=== PATIENT | female | born 1990 | race Caucasian/White ===

== ENCOUNTER 2020-09-18 14:29 | Outpatient (REF) | payer OTHER, SELFPAY | END 2020-09-18 14:30 | disposition home or self-care (01) | LOC: HO.SCI 14:29 | DX: Z13.89 Encounter for screening for other disorder (principal) ==

== ENCOUNTER 2020-10-03 13:48 | Outpatient (REF) | payer OTHER, SELFPAY ==
--- NOTE | ~2020-10-03 | US_ITS ---
EXAMINATION: US OBSTETRICAL CLINICAL INFORMATION: 30-year-old at 19.4 weeks of gestation Suspected anomaly Insufficient care COMPARISON: None in this TECHNIQUE: Real-time transabdominal ultrasound was performed using C1-5 megahertz transducer. FINDINGS: A single, active, fetus is seen in breech presentation. The placenta is anterior without previa, and the amniotic fluid volume is wnl. MEASUREMENTS: 1. Biparietal Diameter: 4.7 cm; 20.1 wks 2. Occipital Frontal Diameter: 6.3 cm 3. Head Circumference: 17.7 cm; 20.2 wks 4. Abdominal Circumference: 15.5 cm; 20.5 wks 5. Femur Length: 3.1 cm; 19.5 wks 6. Humerus Length: 3.1 cm; 20.2 wks 7. Tibia Length: 2.7 cm; 19.6 wks 8. Ulna Length: 2.6 cm; 19.2 wks 9. Lateral ventricle: 0.52 cm 10. Cerebellum: 1.98 cm; 20.2 wks 11. Cisterna Magna: 0.36 cm 12. Nuchal Fold: 3.91 mm 13. Heart Rate: 155 beats per minute Rt ovary: normal Lt ovary: Unable to visualize Cervical length 3.9 cm on T/A. GESTATIONAL AGE: 1. Established GA: 19.4 wks 2. GA from [facility]: 20.2 wks ESTIMATED DATE OF DELIVERY: 1. Established POOJA: 02/23/2021 2. POOJA from [facility]: 721 ANATOMY: The visualized anatomy includes but not limited to: 1. Cranium: Normal 2. Intracranial anatomy: cavum septum pellucidi, lateral ventricles, choroid plexus, cerebellum, posterior fossa, third and fourth ventricles. 3. face: orbits, lip/palate, profile, nasal bone 4. Heart: four-chamber view of the heart, ventricular septum, foramen ovale, pulmonary vein, left and right outflow tracts, three-vessel view, 3 vessel trachea view, aortic and ductal arches, situs.. 5. Diaphragm: Normal 6. Abdominal wall: Normal 7. Cord Insertion: Normal 8. Spine: Cervical, thoracic, lumbar, sacral. 9. Stomach: Normal size and shape 10. Right Kidney: Normal 11. Left Kidney: Normal 12. 3 vessel cord: Normal 13. Upper extremity: Open hands, fifth digit. 14. Lower extremity: Tibia, fibula, bilateral feet. 15. Bladder: Normal 16. Genitalia: Female, patient not aware US/US OB /maternal detail IMPRESSION: 1. Single, living, intrauterine with appropriate biometry. 2. Normal survey DISCUSSION: I reviewed today's ultrasound findings. We discussed the limitations of ultrasound in diagnosing aneuploidy and other congenital abnormalities. I reviewed the differences between screening test and diagnostic test. Amniocentesis was discussed and declined. She was informed that the baseline incidence of congenital abnormalities is approximately 3-5%. Not all these conditions are diagnosable in utero. POOJA of 02/23/2021 is based on earlier ultrasound per patient. However the ultrasound report is not available for my inspection. RECOMMENDATIONS: 1. Follow-up when necessary. Thank you for allowing me to participate in her care. Total time 30 minutes. The time spent was devoted to counseling the patient about the disease and diagnosis, coordinating care including reviewing her records, pertinent lab data and studies, as well as discussing diagnostic evaluation and workup, plan therapeutic interventions and future disposition of care. This includes any additional research needed to obtain further information in formulating the plan of care of this patient. This note was generated with a voice recognition program. Please excuse any errors which may have been overlooked during my review of this note. Sometimes these errors may affect the content or meaning of a given sentence.
== END 2020-10-03 13:49 | disposition home or self-care (01) ==
LOC: HO.US 13:48
PROVIDERS: Visit Provider Obstetrics & Gynecology
DX: Z36.3 Encounter for antenatal screening for malformations (principal)
CPT/HCPCS: 76811

== ENCOUNTER 2023-10-10 15:24 | Outpatient (AMB) | payer OTHER, SELFPAY ==
--- NOTE | 2023-10-10 16:15 | MHC.OFFWIV ---
Intake Vital Signs 10/10/23 16:19 Height 5 ft 5 in Weight 189 lb BMI 31.4 BP 142/86 H Blood Pressure Location Lt brachial Position Sitting Pulse 106 H Pulse Source Pulse Oximeter Pulse Oximetry (%) 99 Oxygen Delivery Method Room Air Intake Visit Reasons: EP Acid Reflux back pain Intake Note: Pt is here today for acid reflux and back pain. Symptoms started 3hrs ago today. Patient Tobacco Use Status: Never used Tobacco Allergies tree nut Allergy (Unknown, Verified 10/10/23 16:19) Hives Do you need a note to return to daycare/school/sports/work: No HPI EP Acid Reflux back pain HPI Details 33-year-old female presents to the office for a sick visit. Patient gives history of GERD which started during the 3rd trimester of her last . She was well controlled on pantoprazole after the of the baby, patient has been having symptoms of GERD despite being on pantoprazole. She gets pain in her middle of the back radiating to the front once or twice a week. Symptoms then last for a day. No nausea or vomiting. Patient has tried Mylanta along with pantoprazole with minimal relief. She continues to nurse her baby. [facility] Social History Patient Tobacco Use Status: Never used Tobacco Physical Exam Vital Signs: Last Vital Signs Pulse 106 H 10/10/23 16:19 BP 142/86 H 10/10/23 16:19 Pulse Ox 99 10/10/23 16:19 Oxygen Delivery Method Room Air 10/10/23 16:19 BMI result Body Mass Index 31.4 Const General: cooperative and healthy appearing Nutritional Appearance: well nourished Orientation/consciousness: patient oriented x3 Limitations: no limitations HEENT Head: Yes normal to inspection Eyes General: appearance normal, both eyes and all related structures Neck Neck: Yes normal visual inspection Chest Chest palpation & inspection: normal palpation of entire chest wall Resp Effort & Inspection: normal respiratory effort Neuro General: patient oriented x3 Assessment & Plan Assessment & Plan (1) GERD (gastroesophageal reflux disease): Code(s): K21.9 - Gastro-esophageal reflux disease without esophagitis Plan: Zantac 150 mg twice a day added to the regimen. Patient was advised to avoid carbonated drinks. Blood work has been ordered. Should symptoms not improve she needs to follow-up with her primary care for a possible GI referral. Orders: Orders Basic Metabolic Panel Today K21.9 - Gastro-esophageal reflux disease without esophagitis Liver Panel Today K21.9 - Gastro-esophageal reflux disease without esophagitis Thyroid Stimulating Hormone Today K21.9 - Gastro-esophageal reflux disease without esophagitis Complete Blood Count no Diff Today K21.9 - Gastro-esophageal reflux disease without esophagitis Coding Level of Care Code Est Pt Level 4 (06656) Diagnoses GERD (gastroesophageal reflux disease) K21.9
[2023-10-10 16:19] VITALS: BP 142/86; PULSE 106; O2SAT 99; BMI 31.4
== END 2023-10-10 16:51 | disposition home or self-care (01) ==
PROVIDERS: PCP Family Medicine; Visit Provider Internal Medicine
DX: K21.9 Gastro-esophageal reflux disease without esophagitis (principal)
CPT/HCPCS: 99214

== ENCOUNTER 2024-12-05 07:54 | Outpatient (AMB) | payer OTHER, SELFPAY ==
--- OUTSIDE RECORDS SUMMARY | 2024-12-05 07:58 | XMS_ITS | Encounter Summary ---
Author Organization [facility] Address [address] [place] [address] Care Team Providers Care Telephone Instrument Supervisor Name Role Phone Cooper Lawler MD Primary Care Provider [phone] Encounter Details Date Type Department Care Team (Late st Contact Info) Description 03/17/2023 Scanned Document [facility] Department Of Dental Professional [place] [address] [place] [id number] Shalom Orlando MD [address] [place] [address] Social History Tobacco Use Types Packs/Day Years Used Date Smoking Tobacco: Never Smokeless Tobacco: Never Alcohol Use Standard Drinks/Week Comments Yes 0 (1 standard drink = 0.6 oz pur e alcohol) Comments Yes Sex and Gender Information Value Date Recorded Sex Assigned at Female 05/09/2023 8:12 AM EDT Legal Sex Female 11:50 AM EDT Gender Identity Female 09/24/2022 3:55 PM EST Sexual Orientation Not on file documented as of this encounter Plan of Treatment Not on file documented as of this encounter Visit Diagnoses Not on filedocumented in this encounter Care Teams Telephone Instrument Supervisor Relationship Specialty Start Date End Date Cooper Lawler MD [address] [facility] [facility] [address] [place], [place] [id number] PCP - General documented as of this encounter
--- OUTSIDE RECORDS SUMMARY | 2024-12-05 07:59 | XMS_ITS | Encounter Summary ---
Author Organization [facility] Address [address] [place] [address] Care Team Providers Care Clinic Administrator Name Role Phone Cooper Lawler MD Primary Care Provider [phone] Encounter Details Date Type Department Care Team (Late st Contact Info) Description 10/14/2023 Scanned Document [facility] [address] [place] [address] Provider, External, [address] [place] [address] Social History Tobacco Use Types Packs/Day Years Used Date Smoking Tobacco: Never Smokeless Tobacco: Never Alcohol Use Standard Drinks/Week Comments Yes 0 (1 standard drink = 0.6 oz pur e alcohol) [facility] Utilities Answer Date Recorded In the past 12 months has e electric, gas, oil, or water company threatened to shut off services in your home? No 09/08/2023 AUDIT-C Answer Date Recorded Q1: How often do you have a drink containing alcohol? Never 09/08/2023 Q2: How many drinks containi ng alcohol do you have on a typical day when you are drinking? Patient does not drink Q3: How often do you have si x or more drinks on one occasion? Never 09/08/2023 Hunger Vital Sign Answer Date Recorded Within the past 12 months, y ou worried that your food would run out before you got the money to buy more. Never true 09/08/19 24 Within the past 12 months, t he food you bought just didn't last and you didn't have money to get more. Never true 09/08/2023 PRAPARE - Transportation Answer Date Re corded In the past 12 months, has l ack of transportation kept you from medical appointments or from getting medications? No 03/2024 In the past 12 months, has l ack of transportation kept you from meetings, work, or from getting things needed for daily living? No 09/08/2023 Housing Stability Vital Sign Answer Darrell e Recorded In the last 12 months, was t here a time when you were not able to pay the mortgage or rent on time? No 09/08/2023 In the last 12 months, how many places have you lived? 0 09/08/2023 In the last 12 months, was t here a time when you did not have a steady place to sleep or slept in a nursing home (including now)? No 09/08/2023 Comments No Sex and Gender Information Value Date Recorded Sex Assigned at Female 05/09/2023 8:12 AM EDT Legal Sex Female 11:50 AM EDT Gender Identity Female 09/24/2022 3:55 PM EST Sexual Orientation Not on file documented as of this encounter Plan of Treatment Not on file documented as of this encounter Visit Diagnoses Not on filedocumented in this encounter Care Teams Clinic Administrator Relationship Specialty Start Date End Date Cooper Lawler MD [address] [facility] [address] [facility] [address] [place] [address] PCP - General documented as of this encounter
--- OUTSIDE RECORDS SUMMARY | 2024-12-05 07:59 | XMS_ITS | Encounter Summary ---
Author Organization [facility] Address [address] [place] [address] Care Team Providers Care Manager Quality Systems Name Role Phone Cooper Lawler MD Primary Care Provider Encounter Details Date Type Department Care Team (Late st Contact Info) Description 02/16/2023 Scanned Document [facility] Department Of [place] [address] [place] [address] Shalom Orlando MD [address] [place] [address] Social History Tobacco Use Types Packs/Day Years [...] on filedocumented in this encounter Care Teams Manager Quality Systems Relationship Specialty Start Date End Date Cooper Lawler MD [address] [facility] [address] [place], [place] [phone] PCP - General documented as of this encounter
--- OUTSIDE RECORDS SUMMARY | 2024-12-05 07:59 | XMS_ITS | Encounter Summary ---
Author Organization [facility] Address [address] [place] [address] Care Team Providers Care Paint Preparer Name Role Phone Cooper Lawler MD Primary Care Provider [phone] Encounter Details Date Type Department Care Team (Late st Contact Info) Description 08/10/2023 Scanned Document [facility] Department Of [place] [address] [place] [phone] Shalom Orlando MD [address] [place] [address] Social History Tobacco Use Types Packs/Day Years [...] on filedocumented in this encounter Care Teams Paint Preparer Relationship Specialty Start Date End Date Cooper Lawler MD [address] [facility] [address] [place], [place] [phone] PCP - General documented as of this encounter
--- OUTSIDE RECORDS SUMMARY | 2024-12-05 07:59 | XMS_ITS | Clinical Summary ---
Author Organization [facility] Address [address] [place] [address] Care Team Providers Care Raveler Name Role Phone Unavailable Primary Care Provider Unavailabl e Allergies Active Allergy Reactions Criticality Noted Date Comments Nuts Anaphylaxis High 02/23/2021 Tree Nuts Anaphylaxis High 02/23/2021 Medications Medication Sig Dispensed Refills Start Date End Date Status Vit-Fe Fumarate-FA ( Plus) 27-1 MG TABS tablet Take 1 tablet by mouth every morning after breakfast. 0 Active HYDROmorphone (DILAUDID) 2 MG tablet Take 1 tablet (2 mg total) by mouth every 6 (six) hours as needed for pain. 12 tablet 0 10/14/2023 Active oxyCODONE (ROXICODONE) 5 MG immediate release tablet Take 1 tablet (5 mg total) by mouth every 6 (six) hours as needed for pain. 15 tablet 0 10/14/2023 Active Active Problems Problem Noted Date Diagnosed Date Choledocholithiasis 10/11/2023 Severe pre-eclampsia, delivered, current hospita lization 02/24/2021 Normal labor 02/23/2021 Elevated blood pressure affe cting in third trimester, antepartum 02/23/2021 Social History Tobacco Use Types Packs/Day Years Used Date Smoking Tobacco: Never Smokeless Tobacco: Never Alcohol Use Standard Drinks/Week Comments Not Currently 0 (1 standard drink = 0.6 oz pur e alcohol) Sex and Gender Information Value Date Recorded Sex Assigned at Female 07/11/2020 1:32 PM EST Gender Identity Not on file Sexual Orientation Not on file Job Start Date Occupation Industry Not on file Not on file Not on file Last Filed Vital Signs Vital Sign Reading Time Taken Comments Blood Pressure 138/83 10/14/2023 3:33 PM EDT Pulse 88 10/14/2023 3:33 PM EDT Temperature 36.7 ??C (98 ??F) 10/14/2023 3:33 PM EDT Respiratory Rate 16 10/14/2023 3:33 PM EDT Oxygen Saturation 99% 10/14/2023 3:33 PM EDT Inhaled Oxygen Concentration - - Weight 88 kg (194 lb 0.1 oz) 10/14/2023 3:33 PM EDT Height 165.1 cm (5' 5 ) 10/14/2023 7:59 AM EDT Body Mass Index 32.28 10/14/2023 7:59 AM EDT Plan of Treatment Health Maintenance Due Date Last Done Comments Hepatitis B Vaccines (1 of 3 - 3-dose series) 1990 Hepatitis C Screening 1990 COVID-19 Vaccine (#1) 1990 Depression Screening 2002 BMI Counseling 2008 Preventative Health Evaluation 2008 Cervical Cancer Screening (P ap Smear) 2011 Influenza Vaccine (#1) 2024 05/10/2023 DTap / Tdap / Td (2 - Td or Tdap) 08/04/2033 024 RSV Adult > 60+ Yrs or Discontinued 3 Pneumococcal Vaccine Aged Out No long er eligible based on patient's age to complete this topic RSV Ped < 20 months Aged Out No longe r eligible based on patient's age to complete this topic Advance Directives For more information, please contact: [phone] Latest Code Status on File Code Status Date Activated Date Inactivated Comments Full Code 10/14/2023 10:23 AM 10/14/2023 3:11 PM This code status was ascertained in the following way: discussion with patient . Code Status History Code Status Date Activated Date Inactivated Comments Full Code 10/11/2023 10:32 AM 10/12/2023 11:14 PM Thi s code status was ascertained in the following way: discussion with patient . Full Code 02/23/2021 5:33 AM 02/26/2021 6:27 PM This code status was ascertained in the following way: discussion with patient .
--- OUTSIDE RECORDS SUMMARY | 2024-12-05 07:59 | XMS_ITS | Clinical Summary ---
Author Organization [facility] Address [address] [place] [address] Care Team Providers Care Open Hearth Furnace Laborer Name Role Phone Unavailable Primary Care Provider Unavailabl e Surgical History Surgery Date Site/Laterality Comments APPENDECTOMY PROCEDURE:APPENDECTOMY KNEE SURGERY PROCEDURE:KNEE SURGERY MANDIBLE SURGERY PROCEDURE:MANDIBLE SURGERY WISDOM TOOTH EXTRACTION PROCEDURE:WISDOM TOOTH EXTRACTION CHOLECYSTECTOMY 10/14/2023 N/A PROCEDURE:CHOLECYSTECTOMY;COMMENT:P rocedure: LAPAROSCOPY CHOLECYSTECTOMY POSSIBLE OPEN; Surgeon: Camila Richey MD; Location: [facility]; Service: General; Laterality: N/A; Social History Tobacco Use Types Packs/Day Years Used Date Smoking Tobacco: Never Smokeless Tobacco: Never Alcohol Use Standard Drinks/Week Comments Not Currently 0 (1 standard drink = 0.6 oz pur e alcohol) Comments Unknown Sex and Gender Information Value Date Recorded Sex Assigned at Not on file Legal Sex Female 11:12 PM EST Gender Identity Not on file Sexual Orientation Not on file Obstetrics History Plan of Treatment Health Maintenance Due Date Last Done Comments DTaP,Tdap,and Td Vaccines (1 - Tdap) 2009 Hepatitis B Vaccines (1 of 3 - 19+ 3-dose series) 2009 Cervical Cancer Screening: Pap Smear 2011 Cholesterol Screening (Lipid Panel) 07/04/2022 Depression Screening 07/04/2022 HIV Screening 07/04/2022 Hepatitis C Screening 07/04/2022 Social Influencers of Health Screening 07/04/2022 COVID-19 Vaccine ( season) 2024 Hypertension/CHF/CAD Annual BMP Blood Test 10/13/2024 10/14/2023, 10/14/2023, 10/12/2023, Additional history exists Influenza Vaccine (Season Ended) 2025 HIB Vaccines Aged Out No longer eligi ble based on patient's age to complete this topic HPV Vaccines Aged Out No longer eligi ble based on patient's age to complete this topic Hepatitis A Vaccines Aged Out No long er eligible based on patient's age to complete this topic IPV Vaccines Aged Out No longer eligi ble based on patient's age to complete this topic MMR Vaccines Aged Out No longer eligi ble based on patient's age to complete this topic Meningococcal ACWY Vaccine Aged Out N o longer eligible based on patient's age to complete this topic Meningococcal B Vaccine Aged Out No l onger eligible based on patient's age to complete this topic Pneumococcal Vaccine: Pediatrics (0 to 5 Years) and At-Risk Patients (6 to 64 Years) Aged Out No longer eligible based on patient's age to complete this topic RSV Immunization Patients Under 20 months Aged Out No longer eligible based on patient's age to complete this topic Varicella Vaccines Aged Out No longer eligible based on patient's age to complete this topic
--- OUTSIDE RECORDS SUMMARY | 2024-12-05 07:59 | XMS_ITS ---
Author Name [facility] Organization Unknown Results Test Name/Text Value Interpretation Date Range Source LIPASE SERPL CCNC 52U/L Normal [id number] 11 - 82 [facility] ALP SERPL-CCNC 220U/L Above high normal [id number] 34 - 104 [facility] ALT SERPL CCNC 460U/L Above high normal [id number] 7 - 52 [facility] AST SERPL CCNC 432U/L Above high normal [id number] 5 - 40 [facility] LDH SERPL L TO P CCNC 426U/L Above high normal [id number] 125 - 220 [facility] HCG PREG SERPL QL NEGATIVE Normal [id number] [facility] NEUTROPHIL[facility] NFR BLD AUTO 85.8% Above high normal [id number] 44 - 74 [facility] MONOCYTES NFR BLD AUTO 2.5% Normal [id number] 2 - 12 [facility] BASOPHILS NFR BLD AUTO 0.1% Normal [id number] 0 - 2 [facility] EOSINOPHIL NFR BLD AUTO 0% Normal [id number] 0 - 6 [facility] NUCLEATED RBC 0% Normal [id number] 0 - 1 [facility] LYMPHOCYTES NFR BLD AUTO 11.2% Below low normal [id number] 20 - 48 [facility] NEUTROPHILS NO. BLD AUTO 7.8K/uL Normal [id number] 1.8 - 7.8 [facility] LYMPHOCYTES NO. BLD AUTO 1K/uL Normal [id number] 1 - 3.2 [facility] IMMATURE GRANULOCYTE, PERCENT 0.4% Normal [id number] 0 - 1 [facility] BASOPHILS IN BLOOD BY AUTOMATED COUNT 0K/uL Normal [id number] 0 - 0.2 [facility] IMMATURE GRANULOCYTE, ABSOLUTE 0.04k/uL Normal [id number] - 0.1 [facility] MONOCYTES NO. BLD AUTO 0.2K/uL Normal [id number] 0 - 0.8 [facility] EOSINOPHIL NO. BLD AUTO 0K/uL Normal [id number] 0 - 0.5 [facility] MCV RBC AUTO 72.4fL Below low normal [id number] 78 - 10 0 [facility] PMV BLD AUTO 10.4fL Normal [id number] 7.4 - 11.4 [facility] RDW RBC AUTO RTO 22.5% Above high normal [id number] 12 .1 - 16.2 [facility] PLATELET NO. BLD AUTO 261K/uL Normal [id number] 150 - 450 [facility] MCH RBC QN AUTO 23.4pg Below low normal [id number] 25 - 33 [facility] HGB BLD MCNC 12.9g/dL Normal [id number] 12.5 - 16 [facility] MCHC RBC AUTO MCNC 32.3g/dL Normal [id number] 32 - 36 [facility] HCT VFR BLD AUTO 39.9% Normal [id number] 37 - 47 [facility] WBC NO. BLD AUTO 9.1K/uL Normal [id number] 4 - 10.5 [facility] RBC NO. BLD AUTO 5.51M/uL Above high normal [id number] 4. 2 - 5.4 [facility] ANION GAP SERPL SCNC 13mmol/L Normal [id number] 5 - 14 [facility] POTASSIUM SERPL SCNC 3.6mmol/L Normal [id number] 3.5 - 5.1 [facility] BUN SERPL MCNC 10mg/dL Normal [id number] 7 - 17 [facility] HCO3 SER SCNC 20mmol/L Below low normal [id number] 24 - 3 2 [facility] Glomerular filtration rate/1.73 sq M. predicted 100 Normal [id number] 60 - [facility] CREAT SERPL MCNC 0.8mg/dL Normal [id number] 0.5 - 1 [facility] CHLORIDE SERPL SCNC 105mmol/L Normal [id number] 98 - 10 7 [facility] CALCIUM SERPL MCNC 9.6mg/dL Normal [id number] 8.4 - 10 .2 [facility] GLUCOSE SERPL MCNC 139mg/dL Normal [id number] 70 - 199 [facility] SODIUM SERPL SCNC 137mmol/L Normal [id number] 135 - 145 [facility] AMYLASE SERPL CCNC 43U/L Normal [id number] 29 - 103 [facility] BILIRUB DIRECT SERPL MCNC 0.9mg/dL Above high normal [id number] 0 - 0.2 [facility] BILIRUB SERPL MCNC 1.6mg/dL Above high normal [id number] 0.3 - 1 [facility] HCT VFR BLD AUTO 36.8% Below low normal [id number] 37 - 47 [facility] HGB BLD MCNC 11.9g/dL Below low normal [id number] 12.5 - 16 [facility] BUN SERPL MCNC 12mg/dL Normal [id number] 7 - 17 [facility] POTASSIUM SERPL SCNC 3.5mmol/L Normal [id number] 3.5 - 5.1 [facility] Glomerular filtration rate/1.73 sq M. predicted 100 Normal [id number] 60 - [facility] HCO3 SER SCNC 23mmol/L Below low normal [id number] 24 - 3 2 [facility] CHLORIDE SERPL SCNC 108mmol/L Above high normal [id number] 98 - 107 [facility] SODIUM SERPL SCNC 139mmol/L Normal [id number] 135 - 145 [facility] GLUCOSE SERPL MCNC 79mg/dL Normal [id number] 70 - 199 [facility] CREAT SERPL MCNC 0.8mg/dL Normal [id number] 0.5 - 1 [facility] CALCIUM SERPL MCNC 9mg/dL Normal [id number] 8.4 - 10 .2 [facility] ANION GAP SERPL SCNC 8mmol/L Normal [id number] 5 - 14 [facility] ALBUMIN SERPL BCG MCNC 4g/dL Normal [id number] 3.5 - 5 [facility] AST SERPL CCNC 134U/L Above high normal [id number] 5 - 40 [facility] ALP SERPL-CCNC 177U/L Above high normal [id number] 34 - 104 [facility] ALBUMIN/GLOB SERPL MRTO 1.8 Normal [id number] [facility] BILIRUB SERPL MCNC 0.8mg/dL Normal [id number] 0.3 - 1 [facility] BILIRUB DIRECT SERPL MCNC 0.2mg/dL Normal [id number] 0 - 0.2 [facility] ALT SERPL CCNC 257U/L Above high normal [id number] 7 - 52 [facility] PROT SERPL MCNC 6.2g/dL Below low normal [id number] 6.4 - 8.5 [facility] ALT SERPL CCNC 286U/L Above high normal [id number] 7 - 52 [facility] PROT SERPL MCNC 6.9g/dL Normal [id number] 6.4 - 8.5 [facility] BILIRUB SERPL MCNC 0.9mg/dL Normal [id number] 0.3 - 1 [facility] ALBUMIN SERPL BCG MCNC 4.4g/dL Normal [id number] 3.5 - 5 [facility] ALP SERPL-CCNC 190U/L Above high normal [id number] 34 - 104 [facility] AST SERPL CCNC 162U/L Above high normal [id number] 5 - 40 [facility] ALBUMIN/GLOB SERPL MRTO 1.8 Normal [id number] [facility] BILIRUB DIRECT SERPL MCNC 0.3mg/dL Above high normal [id number] 0 - 0.2 [facility] URATE SERPL MCNC 6.4mg/dL Normal [id number] 2.5 - 7 [facility] MAGNESIUM SERPL MCNC 1.8mg/dL Normal [id number] 1.7 - 2.8 [facility] ANION GAP SERPL SCNC 13mmol/L Normal [id number] 5 - 14 [facility] CHLORIDE SERPL SCNC 104mmol/L Normal [id number] 98 - 10 7 [facility] CALCIUM SERPL MCNC 9.6mg/dL Normal [id number] 8.4 - 10 .2 [facility] GLUCOSE SERPL MCNC 113mg/dL Normal [id number] 70 - 199 [facility] BUN SERPL MCNC 12mg/dL Normal [id number] 7 - 17 [facility] Glomerular filtration rate/1.73 sq M. predicted 117 Normal [id number] 60 - [facility] CREAT SERPL MCNC 0.7mg/dL Normal [id number] 0.5 - 1 [facility] SODIUM SERPL SCNC 136mmol/L Normal [id number] 135 - 145 [facility] POTASSIUM SERPL SCNC 3.7mmol/L Normal [id number] 3.5 - 5.1 [facility] HCO3 SER SCNC 19mmol/L Below low normal [id number] 24 - 3 2 [facility] BILIRUB DIRECT SERPL MCNC 1.1mg/dL Above high normal [id number] 0 - 0.2 [facility] BILIRUB SERPL MCNC 2.1mg/dL Above high normal [id number] 0.3 - 1 [facility] LIPASE SERPL CCNC 54U/L Normal [id number] 11 - 82 [facility] AMYLASE SERPL CCNC 39U/L Normal [id number] 29 - 103 [facility] AST SERPL CCNC 226U/L Above high normal [id number] 5 - 40 [facility] ALT SERPL CCNC 265U/L Above high normal [id number] 7 - 52 [facility] LDH SERPL L TO P CCNC 306U/L Above high normal [id number] 125 - 220 [facility] ALP SERPL-CCNC 209U/L Above high normal [id number] 34 - 104 [facility] MCV RBC AUTO 72.9fL Below low normal [id number] 78 - 10 0 [facility] IMMATURE GRANULOCYTE, ABSOLUTE 0.03k/uL Normal [id number] - 0.1 [facility] PLATELET NO. BLD AUTO 247K/uL Normal [id number] 150 - 450 [facility] MONOCYTES NO. BLD AUTO 0.3K/uL Normal [id number] 0 - 0.8 [facility] LYMPHOCYTES NFR BLD AUTO 14.7% Below low normal [id number] 20 - 48 [facility] PMV BLD AUTO 10.5fL Normal [id number] 7.4 - 11.4 [facility] MCHC RBC AUTO MCNC 31.2g/dL Below low normal [id number] 3 2 - 36 [facility] RBC NO. BLD AUTO 5.46M/uL Above high normal [id number] 4. 2 - 5.4 [facility] RDW RBC AUTO RTO 21.8% Above high normal [id number] 12 .1 - 16.2 [facility] MCH RBC QN AUTO 22.7pg Below low normal [id number] 25 - 33 [facility] WBC NO. BLD AUTO 7.5K/uL Normal [id number] 4 - 10.5 [facility] HCT VFR BLD AUTO 39.8% Normal [id number] 37 - 47 [facility] IMMATURE GRANULOCYTE, PERCENT 0.4% Normal [id number] 0 - 1 [facility] HGB BLD MCNC 12.4g/dL Below low normal [id number] 12.5 - 16 [facility] EOSINOPHIL NO. BLD AUTO 0K/uL Normal [id number] 0 - 0.5 [facility] NEUTROPHILS NFR BLD AUTO 79.5% Above high normal [id number] 44 - 74 [facility] MONOCYTES NFR BLD AUTO 4.5% Normal [id number] 2 - 12 [facility] NEUTROPHILS NO. BLD AUTO 6K/uL Normal [id number] 1.8 - 7.8 [facility] NUCLEATED RBC 0% Normal [id number] 0 - 1 [facility] BASOPHILS IN BLOOD BY AUTOMATED COUNT 0K/uL Normal [id number] 0 - 0.2 [facility] LYMPHOCYTES NO. BLD AUTO 1.1K/uL Normal [id number] 1 - 3.2 [facility] BASOPHILS NFR BLD AUTO 0.4% Normal [id number] 0 - 2 [facility] EOSINOPHIL NFR BLD AUTO 0.5% Normal [id number] 0 - 6 [facility] HCG PREG UR QL NEGATIVE Normal [id number] - [facility] Sp Gr Ur Strip.auto 1.015 Normal [id number] 1.005 - 1.03 [facility] Glucose Ur Ql Strip.auto NEGATIVE Normal [id number] - [facility] Ketones Ur Ql Strip.auto >80 Abnormal [id number] - [facility] Hgb Ur Ql Strip.auto NEGATIVE Normal [id number] - [facility] Nitrite Ur Ql Strip.auto NEGATIVE Normal [id number] - [facility] Prot Ur Ql Strip.auto TRACE Abnormal [id number] - [facility] Clarity Ur Refract.auto CLEAR Normal [id number] [facility] Leukocyte esterase Ur Ql Strip.auto NEGATIVE Normal [id number] - [facility] pH Ur Strip.auto 7 Normal [id number] 4.5 - 8 [facility] SPECIMEN SOURCE XXX URINE CLEAN CATCH Normal [id number] [facility] History of Medication Use Medication Directions Dispensed Refills Start Date End Date Stat morphine sulfate injection 4 mg 4 mg, Intravenous, Once, On Tue10/14/23 at 1600, For 1 dose 10/14/2023 10/14/2023 completed fentaNYL (SUBLIMAZE) injection 50 mcg 50 mcg, Intravenous, Every 5 min PRN, moderate pain (4-6), Starting on Tue10/14/23 at 1041, For 4 doses, PACU/Phase 1Not to exceed a total of 200 mcg 10/14/2023 active lactated ringers infusion 100 mL/hr, Intravenous, Continuous, Starting on Yamel 10/13/23 at 0015 10/12/2023 10/12/2023 active cefTRIAXone (ROCEPHIN) injection 1,000 mg 1,000 mg, Intravenous, Once, On Tue10/11/23 at 0300, For 1 doseIf ordered IV then reconstitute with 10 mL sterile water or normal saline and administer IV push over 3 to 5 minutes. 10/11/2023 10/11/2023 completed lactated ringers infusion 125 mL/hr, Intravenous, Continuous, Starting on Tue10/11/23 at 1215 10/11/2023 10/11/2023 aborted magnesium sulfate 2 g/50ml IVPB Premix 2 g, Intravenous, at 50 mL/hr, Once, On Tue10/11/23 at 0015, For 1 dose 10/11/2023 10/11/2023 completed PANTOprazole (PROTONIX) 40 MG EC tablet Take 1 tablet (40 mg total) by mouth every morning before breakfast. 07/20/2023 active vitamin with iron and folic acid ( PLUS) 27-1 MG Tab Take 1 tablet by mouth. active Problems Problem Status Onset Date Problem Type Date of Resolution Source Normal spontaneous vaginal delivery active 2023-09-10 [facility] care and examination active EncounterDiagnosisAct [facility] Post-term , 40-42 weeks of gestation active 2023-09-[address] Decreased movement active 2023-08-23 ProblemAct [facility] Severe pre-eclampsia, delivered, current hospitalization active 2021-02-24 ProblemAct [facility] Elevated blood pressure affecting in third trimester, antepartum active 2021-02-23 ProblemAct [facility] Normal labor active 2021-02-23 ProblemAct [facility] Post-operative pain active EncounterDiagnosisAc t [facility] Hyperbilirubinemia active EncounterDiagnosisAct [facility] Elevated liver enzymes active EncounterDiagnosi sAct [facility] Choledocholithiasis active 2023-10-11 ProblemAct [facility] Immunizations Vaccine Date Source Lot Number Status Tdap 08/04/2023 [facility] [id number] completed RSV, Bivalent, Protein Subun it RSFpreF (ABRYSVO), Diluent Reconstituted, 0.5 mL PF 07/12/2023 [facility] [id number] completed Influenza, Quadrivalent (FLU ARIX, AFLURIA, FLULAVAL, FLUZONE) Preservative Free IM 05/10/2023 [id number] completed Encounters Encounter Type Encounter Reason Primary Diagnosis Location Date Amb[facility] [place] 11/03/2023 Emergency Other acute postprocedural pain Other acute postprocedural pain [facility] 10/14/2023 Ambulatory Calculus of bile oni t without cholangitis or cholecystitis without obstruction Calculus of bile duct without cholangitis or cholecystitis without obstruction [facility] 10/14/2023 Inpatient Acute cholecystitis Acute cholecystitis [facility] 10/10/2023 Inpatient Encounter for full-term uncomplicated delivery Encounter for full-term uncomplicated delivery [facility] 09/08/2023 Ambulatory Encounter for supervision of normal , unspecified, third trimester Encounter for supervision of normal , unspecified, third trimester [facility] 08/30/2023 Ambulatory Encounter for supervision of normal , unspecified, third trimester Encounter for supervision of normal , unspecified, third trimester [facility] 08/26/2023 Ambulatory Decreased movements, unspecified trimester, not applicable or unspecified Decreased movements, unspecified trimester, not applicable or unspecified [facility] 08/23/2023 Ambulatory Encounter for supervision of normal , unspecified, third trimester Encounter for supervision of normal , unspecified, third trimester [facility] 08/23/2023 Ambulatory Encounter for supervision of normal , unspecified, third trimester Encounter for supervision of normal , unspecified, third trimester [facility] 08/18/2023 Ambulatory Encounter for supervision of normal , unspecified, third trimester Encounter for supervision of normal , unspecified, third trimester [facility] 08/11/2023 Ambulatory Encounter for supervision of normal , unspecified, third trimester Encounter for supervision of normal , unspecified, third trimester [facility] 08/04/2023 Ambulatory Encounter for supervision of normal , unspecified, third trimester Encounter for supervision of normal , unspecified, third trimester [facility] 07/26/2023 Ambulatory Maternal care for excessive growth, third trimester, not applicable or unspecified Maternal care for excessive growth, third trimester, not applicable or unspecified [facility] 07/19/2023 Ambulatory Encounter for immunization Encounter for immunization [facility] 07/12/2023 Ambulatory Encounter for supervision of normal , unspecified, third trimester Encounter for supervision of normal , unspecified, third trimester [facility] 06/28/2023 Ambulatory Encounter for supervision of normal , unspecified, second trimester Encounter for supervision of normal , unspecified, second trimester [facility] 06/07/2023 Ambulatory Encounter for immunization Encounter for immunization [facility] 05/10/2023 Ambulatory Encounter for supervision of other normal , second trimester Encounter for supervision of other normal , second trimester [facility] 04/12/2023 Ambulatory Encounter for supervision of other normal , second trimester Encounter for supervision of other normal , second trimester [facility] 03/15/2023 Ambulatory Encounter for screening for nuchal translucency [facility] 02/18/2023 Ambulatory Encounter for supervision of other normal , first trimester [facility] 02/15/2023 Ambulatory Encounter for supervision of normal , unspecified, first trimester [facility] 01/18/2023 Ambulatory Encounter for gynecological examination (general) (routine) without abnormal findings [facility] 10/22/2022 Care Team Organization Name Specialty Phone Email Start Date End [facility] 2023 [facility] 10/11/2023 [facility] 02/18/2023 [facility] 10/22/2022 10/17/2024 [facility] 10/22/2022 10/22/2022
--- NOTE | 2024-12-05 08:00 | MHC.PC.OV ---
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 Intake Note: New patient to establish care Electroneurodiagnostic Technologist Required: No Allergies tree nut Allergy (Unknown, Verified 12/05/24 08:24) Hives Medication List - Last Reconciled 12/05/24 by ALCIRA Cuellar- epinephrine 0.3 mg IM Q10M PRN Tobacco use date assessed: 12/05/24 Dental Screening Dental Screen Date: 12/05/24 Did you have a dental visit in the last 12 months?: No Did you have a dental problem in the last 6 months where you did not have access to dental care?: No Was dental information given to patient?: Patient has dentist HPI HPI Comments History of Present Illness Details 34 y/o female with hx of pancreatitis, obesity s/p lap rupinder w/complication 09/2023 Dr Jernigan[facility] Social: 2 children aged 3 and 1, , 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 - A cholecystectomy was performed following a diagnosis of severe gallstones post-childbirth. The procedure led to complications including bile duct injury, pancreatitis & liver stenting - Diarrhea symptoms intensified in recent weeks and are not linked with bloody stools or significant discernible weight changes. - Has upper gastrointestinal symptoms triggered by certain foods, with symptoms like heartburn, but distinct back pain, intermittent, between shoulder blades, experienced not characterized as reflux. Has no abd pain. Normal urination - No family history of gastrointestinal diseases, and reports negative past testing for celiac disease. - Additional expressed concerns include anxiety triggered by health issues. Was in counseling and on meds previously. Wants counseling - Fungal left great toe nail after pedicure, home treatments w/o great effect. BMI > 32, wants to seek nutrition Elevated heart rate, reports baseline. Apple watch reviewed. 40-182, resting 65-85 bpm. Has never had cardiac work up. + hypersomnolence. has never had sleep study. Physical Exam General: Well developed, well nourished, in no acute distress. Appears stated age. Head: Normocephalic, atraumatic. Eyes: Pupils are equal, round and reactive to light and accommodation. Conjunctivae are clear. Scleras nonicteric Lungs: Clear to auscultation bilaterally, dim throughout Heart: Regular rhythm, + tachycardia No murmurs, click, rubs or gallops are noted. Abdomen: Bowel sounds present in all quadrants. The abdomen is soft, nontender, with no masses or organomegaly noted. No hernias are noted. . Pulses: Peripheral pulses are equal and palpable bilaterally. Extremities: No clubbing, cyanosis nor edema is noted. Toenail fungus noted on the left big toe. Psych: Mood and affect appropriate. Discussion Notes During the consultation, I discussed with the patient the need for further evaluation of her gastrointestinal symptoms post-cholecystectomy. I explained the possible link between post-cholecystectomy diarrhea and bile acid malabsorption, recommending a gastroenterology referral for comprehensive management. I also discussed dietary adjustments and the use of possible binding agents to manage diarrhea. Given the elevated heart rate, a sleep study was advised to assess potential sleep apnea contributing to this finding. For anxiety concerns, I discussed a consultation for cognitive behavioral therapy and further exploration of medication options if needed. Consent for ordering a podiatry consultation for onychomycosis was also discussed with recommendations for self-care measures until evaluated. Orders for labs to check liver function, pancreatic enzymes, and thyroid function were explained, and instructions on stool sample collection were given. The importance of following up on referrals and appointments, acknowledging potential delayed scheduling, was emphasized, as well as the use of our patient portal for accessing lab results and continued communication regarding care. Assessment and Plan 1. 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 Referral to gastroenterology for further evaluation was initiated. 2. Gastroesophageal Reflux Like sx GERD symptoms and dietary triggers were discussed. I recommended monitoring intake that provokes symptoms and advised follow-up with gastroenterology to ascertain further management needs. 3. Anxiety I proposed psychotherapy involvement and referred the patient to our community navigation team for access to mental health services, addressing anxiety possibly exacerbated by recent health challenges. Advice was given on considering medication if required, and including her spouse in therapy sessions was explored. 4. Onychomycosis I recommended continued use of topical antifungal treatments and home remedies, emphasizing exposure to air as part of the management. Referral to podiatry was arranged, with care to avoid systemic treatments impacting liver function. 5. Elevated Pulse Given the identified elevated heart rate, a sleep study referral was recommended to evaluate for possible sleep apnea, acknowledging the potential link between the two conditions. Patient Instructions - Follow up with [facility] for your gastrointestinal concerns as scheduled, considering the potential delay in scheduling. - Continue dietary adjustments to manage symptoms; stay hydrated and note any food triggers. - Use topical antifungal treatment as directed and expose the affected toe to air as much as possible. - Implement stress-reduction strategies to address anxiety and consider engagement with mental health services when contacted. - Schedule the sleep study as instructed once contacted by respiratory therapy. - Utilize the patient portal for accessing lab results and ongoing communication with our office. - RTO in 6-8 weeks to f/u on referrals, sleep study and labs, sooner PRN Consent Patient was informed and verbally consented to the use of an ambient scribe for clinic note documentation during this visit. Total time spent caring for the patient today was 50 minutes. This includes time spent before the visit reviewing the chart, time spent during the visit, and time spent after the visit on documentation, reviewing laboratory results, diagnostic imaging, medications, performing a medically necessary evaluation, counseling on diagnoses, care coordination, ordering appropriate tests, ordering appropriate medications, review of tests performed by other providers, reporting test results with the patient, communication with other healthcare providers. [facility] Medical History (Updated 12/05/24 @ 09:08 by Elizabeth Kumar, [facility]) Anxiety GERD (gastroesophageal reflux disease) Surgical History (Updated 12/05/24 @ 08:11 by Candy Ko MA) H/O wisdom tooth extraction Hx of appendectomy Hx of cholecystectomy Family History (Updated 12/05/24 @ 08:14 by Candy Ko MA) Mother HTN (hypertension) High cholesterol Thyroid disorder Paternal Grandmother HTN (hypertension) Father Diabetes Maternal Grandfather Brain cancer Paternal Grandfather Lung cancer Social History (Updated 12/05/24 @ 08:09 by Candy Ko MA) Household Members: Spouse and Children Housing: House Are you a primary hearing care practitioner to a significant other at home: Yes Do you presently have visiting nurse or other home services: No Alcohol intake: current Alcohol intake frequency: a few times a month Patient Tobacco Use Status: Never used Tobacco e-Cigarette/Vaping Use: Never Used Second Hand Smoke Exposure: No service: No Current occupational status: employed 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 1. Little interest or pleasure in doing things: not at all 2. Feeling down, depressed, or hopeless: not at all 3. Trouble falling or staying asleep, or sleeping too much: not at all 4. Feeling tired or having little energy: several days 5. Poor appetite or overeating: not at all 6. Feeling bad about yourself - or that you are a failure or have let yourself or your family down: not at all 7. Trouble concentrating on things, such as reading the newspaper or watching television: not at all 8. Moving or speaking so slowly that other people could have noticed. Or the opposite - being so fidgety or restless that you have been moving around a lot more than usual: not at all 9. Thoughts that you would be better off or of hurting yourself in some way: not at all Total score: 1 Depression Screening Interpretation: Negative Depression Screening Done: Yes 79965 - PHQ-9 Billing: Yes Source: Developed by Drs. Jose Tavarez, Nickie Joseph, Quincy Ro and colleagues, with an educational nelsy from [employer]. Thrive Questionnaire Date Thrive assessed: 12/05/24 I am a: Patient What is your living situation today?: I have a steady place to live Within the past 12 months, did the food you bought not last and you didn't have the money to get more?: Never true Within the past 12 months, did you worry whether your food would run out before you got money to buy more?: Never true Do you have trouble paying for medicines?: No Do you have trouble getting transportation to medical appointments?: No Do you have trouble paying your heating and electricity bill?: No Do you have trouble taking care of your child, family member or friend?: No Do you have trouble with day-to-day activities such as bathing, preparing meals, shopping, managing finances, etc.?: No Are you currently unemployed and looking for a job?: No Are you interested in more education?: No Please select the resources that you would like help with: None Currently or been in a relationship where the following occur: No concerns reported THRIVE Score: 0 AUDIT C Alcohol Use Questionnaire (AUDIT-C) 1. How often do you have a drink containing alcohol?: Monthly or less 2. How many drinks containing alcohol do you have on a typical day when you are drinking?: 1 or 2 3. How often do you have six or more drinks on one occasion?: Never Total Score: 1 Score Reviewed/Action Taken: Yes BLANCA-7 AMB Questionnaire BLANCA-7 Date BLANCA - 7 assessed: 12/05/24 Feeling nervous, anxious, or on edge: 1 = Several days Not being able to stop or control worryin = Several days Worrying too much about different things: 1 = Several days Trouble relaxin = Not at all Being so restless that it is hard to sit still: 0 = Not at all Becoming easily annoyed or irritable: 1 = Several days Feeling afraid as if something awful might happen: 1 = Several days Total BLANCA-7 score (0-4 normal; 5-9 mild; 10-14 moderate; 15-21 severe): 5 Source: Developed by Drs. Jose Tavarez, Nickie Joseph, Quincy Ro and colleagues, with an educational nelsy from [employer]. BLANCA-7 Assessment Billing BLANCA-7 Assessment Tool: BLANCA-7 Assessment 94201 Physical exam (Primary Care) Vital Signs: Last Vital Signs Temp 97.5 F 12/05/24 08:06 Pulse 100 12/05/24 08:06 Resp 14 12/05/24 08:06 BP 136/74 12/05/24 08:06 Pulse Ox 100 12/05/24 08:06 Oxygen Delivery Method Room Air 12/05/24 08:06 BMI result Body Mass Index 32.2 BMI Assessment/Plan discussion: High BMI High, discussed plan: lifestyle Tobacco/Smoking Status: Tobacco use Status Tobacco use date assessed 12/05/24 12/05/24 08:14 Patient Tobacco Use Status Never used Tobacco 12/05/24 08:14 e-Cigarette/Vaping Use Never Used 12/05/24 08:14 PHQ-9: PHQ-9 Score PHQ-9: Total score 1 12/05/24 08:14 Depression Screening Interpretation: Negative Thrive Assessment: Date of Thrive Assessment Date Thrive assessed 12/05/24 12/05/24 08:14 Currently or been in a relationship where the following occur: No concerns reported Coding Level of Care Code New Pt Level 4 (21487) Complex EM visit Add On G2211 Diagnoses Encounter to establish care Z76.89 Diarrhea, unspecified type R19.7 Diarrhea type: unspecified type Gastroesophageal reflux disease without esophagitis K21.9 Esophagitis presence: without esophagitis Obesity (BMI 30-39.9) E66.9 BLANCA (generalized anxiety disorder) F41.1 Onychomycosis of left great toe B35.1 Hypersomnia G47.10 Tachycardia R00.0 Additional Codes BLANCA-7 Assessment Billing - BLANCA-7 Assessment Tool: BLANCA-7 Assessment 86418 ([id number]) PHQ-9 - 52523 - PHQ-9 Billing: Yes ([id number]) Assessment & Plan Assessment & Plan (1) Encounter to establish care: Code(s): Z76.89 - Persons encountering health services in other specified circumstances Category: Medical (2) Diarrhea: Code(s): R19.7 - Diarrhea, unspecified Category: Medical Qualifiers: Diarrhea type: unspecified type Qualified Code(s): R19.7 - Diarrhea, unspecified (3) GERD (gastroesophageal reflux disease): Code(s): K21.9 - Gastro-esophageal reflux disease without esophagitis Category: Medical Qualifiers: Esophagitis presence: without esophagitis Qualified Code(s): K21.9 - Gastro-esophageal reflux disease without esophagitis (4) Obesity (BMI 30-39.9): Code(s): E66.9 - Obesity, unspecified Category: Medical (5) BLANCA (generalized anxiety disorder): Code(s): F41.1 - Generalized anxiety disorder Category: Medical (6) Onychomycosis of left great toe: Code(s): B35.1 - Tinea unguium Category: Medical (7) Hypersomnia: Code(s): G47.10 - Hypersomnia, unspecified Category: Medical (8) Tachycardia: Code(s): R00.0 - Tachycardia, unspecified Category: Medical Plan . Orders: Orders Complete Blood Count no Diff Today K21.9 - Gastro-esophageal reflux disease without esophagitis, R19.7 - Diarrhea, unspecified Lipid Panel Today K21.9 - Gastro-esophageal reflux disease without esophagitis, R19.7 - Diarrhea, unspecified Microalbumin, Random (w Creat) Today K21.9 - Gastro-esophageal reflux disease without esophagitis, R19.7 - Diarrhea, unspecified TSH reflex Free T4 Today K21.9 - Gastro-esophageal reflux disease without esophagitis, R19.7 - Diarrhea, unspecified Vitamin B12 and Folate Today K21.9 - Gastro-esophageal reflux disease without esophagitis, R19.7 - Diarrhea, unspecified Vitamin D 25-OH Total Today K21.9 - Gastro-esophageal reflux disease without esophagitis, R19.7 - Diarrhea, unspecified Amylase Today K21.9 - Gastro-esophageal reflux disease without esophagitis, R19.7 - Diarrhea, unspecified Lipase Today K21.9 - Gastro-esophageal reflux disease without esophagitis, R19.7 - Diarrhea, unspecified H pylori Ag Stool Today K21.9 - Gastro-esophageal reflux disease without esophagitis, R19.7 - Diarrhea, unspecified Comprehensive Met. Panel Today K21.9 - Gastro-esophageal reflux disease without esophagitis, R19.7 - Diarrhea, unspecified Ferritin Today K21.9 - Gastro-esophageal reflux disease without esophagitis, R19.7 - Diarrhea, unspecified Hemoglobin A1c Today K21.9 - Gastro-esophageal reflux disease without esophagitis, R19.7 - Diarrhea, unspecified RT home sleep study Today G47.10 - Hypersomnia, unspecified, R06.83 - Snoring Referrals Nutrition/Dietitian Referral E66.9 - Obesity, unspecified Gastroenterology Referral K21.9 - Gastro-esophageal reflux disease without esophagitis, R19.7 - Diarrhea, unspecified Nurse Navigator Referral F41.1 - Generalized anxiety disorder Podiatry Referral B35.1 - Tinea unguium Patient Instructions: Walk-In Care (Urgent Care): We Make it Easy Walk-in for urgent medical issues such as: ? Seasonal Allergies ? Insect Bites ? Cough ? Diarrhea ? Acute Asthma Attacks ? Back, Knee or Joint Pain ? Ear Infection ? Fever without a Rash ? Headaches ? Nausea ? Parchment Eye, Rash or Skin Irritation ? Sore Throat ? Sports Physicals ? Vomiting Most insurances are accepted. Patients do not need to be part of the [facility] to seek care at the walk-in clinic. Locations [address] [facility], [place] [address] ? [phone] [facility] in [place] provides services to ages 18 and over. Open Tuesday-Tuesday: 8 a.m. to 5 p.m. and Tuesday: 9 a.m. to 3 p.m.* *Hours may vary due to staffing availability. To confirm Walk-In Care hours in [place], please call [phone]. [address] [place] [address] ? [phone] [facility] in [place] provides services to ages 12 and over. Open Tuesday-Tuesday: 8 a.m. to 5 p.m. Hours may vary due to staffing availability. To confirm Walk-In Care hours in [place], please call [phone]. LABORATORY SERVICES: [facility] Lab ? Primary Location [address] [place] [address] Tuesday through Tuesday 6:00 AM ? 5:00 PM Tuesday 7:00 AM ? 11:00 AM* [phone] The [facility] Lab is centrally located near the front entrance of the [facility] for easy outpatient access. Convenient parking is provided for outpatients. *Hours may vary due to staffing availability. To confirm Laboratory hours for any location, please call [phone]. Offsite Location For your convenience, we offer offsite laboratory draw stations at the following locations: [address] [place] [address] ? [address], [address] Tuesday through Tuesday 7:30 AM ? 1:00 PM* [phone] *Hours may vary due to staffing availability. To confirm Laboratory hours for any location, please call [phone]. [place] ? [address] Tuesday through Tuesday 6:00 AM ? 3:30 PM* Tuesday 6:30 AM ? 3 PM* [phone] *Hours may vary due to staffing availability. To confirm Laboratory hours for any location, please call [phone]. [address] [facility] Tuesday through Tuesday 7:30 AM ? 4:00 PM* [phone] *Hours may vary due to staffing availability. To confirm Laboratory hours for any location, please call [phone] [place] [address] Tuesday through 9:00 AM ? 4:00 PM* *Hours may vary due to staffing availability. To confirm Laboratory hours for any location, please call [phone]. Appointments are not necessary. Walk-ins are welcome. Like all the departments throughout the [facility], our Lab undergoes frequent reviews to ensure the quality and accuracy of test results, and our staff takes special pride in its status as a nationally accredited facility. Patient Portal: ONE PATIENT. ONE RECORD. BETTER CARE. [facility] has a fully integrated, cutting-edge mobile electronic health information system that has revolutionized the way we care for our patients and manage our organization. This system improves communication and coordination enabling us to provide safe, higher-quality care, and an overall positive experience for staff and patients. Our first priority, as always, is to deliver the highest quality care possible. The system is running in the background supporting that priority. This portal is for all [facility] and [facility] services and practices. If you are experiencing any technical difficulties with enrolling or logging into the Patient Portal please complete the [facility] Patient Portal Technical Support Form. [facility] and [facility] now offers a new secure on-line interactive tool for patients to review their health information ? ?Patient Portal. This interactive web portal will enable patients and their families to take an active role in their care by providing easy, secure access to their health information via the internet. The Patient Portal provides patients with instant access to their health information, including laboratory results, medications, allergies, demographic information, visit history, and more. In addition to managing their own care, parents and health care proxies with authorized consent will appreciate the ability to access the records of those individuals for whom they provide care. Please note: if you wish to gain access (Proxy) to another patient?s portal, you will be required to come to the Medical Records Department in person at [facility]. Both the patient giving proxy access and the proxy will need to provide photo identification and complete the appropriate authorization. The Patient Portal also allows track their appointments online. The [facility] Patient Portal also saves patients time by allowing them to submit updates to their demographic and contact information prior to their visits. Portal email notifications will also alert patients to any new activity on their portal, such as test results and new appointments. In order to initially enroll in the [facility] Patient Portal, you will need to enter some required information including the following: your [facility] Medical Record number your personal home email address name date of Please note: In order to enroll in the [facility] Patient Portal, we need to have your email address on file in your electronic medical record. ?The email address needs to be specific for one person (yourself) in order for your Portal enrollment to be successful. ?You can update your email address in person with our Registration staff when you are registering for a hospital visit. ?Otherwise, you will need to come to the Health Information Management (Medical Records) Department at [facility]. ?We are open from Tuesday ? Tuesday from 7:30 a.m. ? 4:30 p.m. ?You will be required to present a photo id. Once you have successfully enrolled in the Patient Portal, you will receive a one-time user id and password for the Portal, sent to your email address. ?This will allow you to log into the Patient Portal within 99 hrs and reset your own logon id and password, and define personal security questions. ?Once your permanent login and password have been set, you can log into the [facility] Patient Portal at any time via the blue button above or from the Portal Logon button on any page of the [facility] website. [facility] and [facility] encourage all of our patients to enroll in Patient Portal as it presents a valuable opportunity for patients and their families to actively participate in their care and stay healthy Welcome to [facility]. ?We look forward to working with you.
[2024-12-05 08:06] VITALS: BP 136/74; PULSE 100; RESP 14; TEMP 36.4; O2SAT 100; BMI 32.2
== END 2024-12-05 09:00 | disposition home or self-care (01) ==
LOC: HO.HMCFM 07:55
PROVIDERS: PCP Nurse Practitioner Family; Visit Provider Nurse Practitioner Family
DX: R19.7 Diarrhea, unspecified (principal); K21.9 Gastro-esophageal reflux disease without esophagitis; E66.9 Obesity, unspecified; Z68.32 Body mass index [BMI] 32.0-32.9, adult; Z76.89 Persons encountering health services in other specified circumstances; F41.1 Generalized anxiety disorder; B35.1 Tinea unguium; G47.10 Hypersomnia, unspecified; R00.0 Tachycardia, unspecified

== ENCOUNTER → 2024-12-05 07:54 | Outpatient (BNVA) | payer OTHER, SELFPAY | PROVIDERS: PCP Nurse Practitioner Family; Visit Provider Nurse Practitioner Family | DX: R19.7 Diarrhea, unspecified (principal); K21.9 Gastro-esophageal reflux disease without esophagitis; E66.9 Obesity, unspecified; F41.1 Generalized anxiety disorder; B35.1 Tinea unguium; G47.00 Insomnia, unspecified; R00.0 Tachycardia, unspecified; Z76.89 Persons encountering health services in other specified circumstances | CPT/HCPCS: 96127; 99212 ==

== ENCOUNTER 2024-12-05 09:05 | Outpatient (REF) | payer OTHER, SELFPAY ==
--- OUTSIDE RECORDS SUMMARY | 2024-12-05 09:36 | XMS_ITS | Encounter Summary ---
Author Organization [facility] Address [address] [place] [address] Care Team Providers Care Park Naturalist Name Role Phone Cooper Lawler MD Primary Care Provider [phone] Encounter Details Date Type Department Care Team (Late st Contact Info) Description 02/16/2023 Scanned Document [facility] Department Of Talent Advisor [place] [address] [place] [id number] Shalom Orlando MD [address] [place] [address] Social History Tobacco Use Types Packs/Day Years [...] on filedocumented in this encounter Care Teams Park Naturalist Relationship Specialty Start Date End Date Cooper Lawler MD [address] [facility] [address] [place], [place] [id number] PCP - General documented as of this encounter
--- OUTSIDE RECORDS SUMMARY | 2024-12-05 09:36 | XMS_ITS | Clinical Summary ---
Author Organization Formerly [facility] Address [address] [place] [address] Care Team Providers Care Tourist Adviser Name Role Phone Cooper Lawler MD Primary Care Provider [phone] Allergies Active Allergy Reactions Criticality Noted Date Comments Nuts Anaphylaxis High 02/23/2021 Medications vitamin with iron and folic acid ( PLUS) 27-1 MG Tab Take 1 tablet by mouth. Active PANTOprazole (PROTONIX) 40 MG EC tabletIndicatio ns:Heart burn Take 1 tablet (40 mg total) by mouth every morning before breakfast. 30 tablet 3 07/20/2023 Active Active Problems Problem Noted Date Diagnosed Date Post-term , 40-42 weeks of gestation Normal spontaneous vaginal delivery 09/10/2023 Normal labor 09/08/2023 Decreased movement 08/23/2023 Immunizations Immunization Administration Dates Next Due Influenza, Quadrivalent (FLU ARIX, AFLURIA, FLULAVAL, FLUZONE) Preservative Free IM 05/10/2023 RSV, Bivalent, Protein Subun it RSVPREF (ABRYSVO), Diluent Reconstituted, 0.5 mL PF 07/12/2023 Tdap 08/04/2023 Family History Medical History Relation Name Comments Diabetes type II Father Relation Name Status Comments Father Social History Tobacco Use Types Packs/Day Years Used Date Smoking Tobacco: Never Smokeless Tobacco: Never Tobacco Cessation:Counseling Given: Not Answered Alcohol Use Standard Drinks/Week Comments Yes 0 (1 standard drink = 0.6 oz pur e alcohol) [facility] Utilities Answer Date Recorded In the past 12 months has [employer], oil, or water [employer] threatened to shut off services in your [...] place to sleep or slept in a chcf (including now)? No 09/08/2023 Comments No Sex and Gender Information Value Date Recorded Sex Assigned at Female 05/09/2023 8:12 AM EDT Legal Sex Female 11:50 AM EDT Gender Identity Female 09/24/2022 3:55 PM EST Sexual Orientation Not on file Last Filed Vital Signs Vital Sign Reading Time Taken Comments Blood Pressure 93/52 09/10/2023 8:00 AM EST Pulse 72 09/10/2023 8:00 AM EST Temperature 36.9 ??C (98.4 ??F) 09/10/2023 8:00 AM ES T Respiratory Rate 18 09/10/2023 8:00 AM EST Oxygen Saturation 98% 09/10/2023 8:00 AM EST Inhaled Oxygen Concentration - - Weight 83.9 kg (185 lb) 11/03/2023 11:01 AM EDT Height 165.1 cm (5' 5 ) 09/08/2023 9:05 AM EST Body Mass Index 30.79 09/08/2023 9:05 AM EST Plan of Treatment Health Maintenance Due Date Last Done Comments Hepatitis C Virus Screening 1990 Hepatitis B Vaccines (1 of 3 - 19+ 3-dose series) 2009 COVID-19 Vaccine (2023-2 5 season) 2024 Influenza Vaccine 03/01/2025 05/10/2023 Pap Smear (Ages 21-65) 01/18/2026 , 10/22/2022 DTaP/Tdap/Td Vaccines (2 - T d or Tdap) 08/04/2033 08/04/2023 HIV Screening Completed 08/11/2023, 05/13/2023 HPV Vaccines Aged Out No longer eligi ble based on patient's age to complete this topic Pneumococcal Vaccine: Pediatric (0-5 Years) and At-Risk Patients (6 to 49 Years) Aged Out No longer eligible b ased on patient's age to complete this topic Procedures Procedure Name Priority Date/Time Associated Diagnosis Comments HIV 1/2 AG/AB CMIA REFLEX TO CONFIRMATION Routine 08/11/2023 4:09 PM EST Third trimester THINPREP PAP TEST (SCALEMAN) WITH HPV REFLEX, GC/CT Routine 01/18/2023 11:31 AM EDT Initial obstetric visit in first trimester from Last 3 Months or Most Recently Relevant to Health Maintenance Results * HIV 1/2 Ag/Ab CMIA Reflex to Confirmation (08/11/2023 4:09 PM EST) Pathologist [facility] HIV DUO NON-REACT [facility] Comment: EXPECTED RESULT = NON-REACTIVE The HIVDuo chemiluminescent assay is a 4th Generation HIV test. This assay is a screening test, and abnormal results will be reflexively confirmed via HIV-1 and HIV-2 antibody tests and/or via molecular assays. Blood specimen (specimen) Blood specimen / Unknown 08/11/2023 4:09 PM EST 08/11/2023 4:09 PM EST Narrative [facility] - 08/11/2023 4:53 PM EST Oral consent has been obtained by either the subject of the test or the person authorized to consent to health care for the individual.->Yes us Shalom Orlando MD LAB BLOOD ORDERABLES Final Result Performing Organization Address City/[facility]/ZIP Co de Phone Number [facility] [address] [place] [address], * ThinPrep Pap Test with HPV Reflex on ASCUS, GC/CT (01/18/2023 11:31 AM EDT) 01/18/2023 11:3 1 AM EDT Narrative [facility] - 01/21/2023 7:06 AM EDT To view the final report click the scan hyperlink below. us Shalom Orlando MD LAB AMB PATH/CYTO ORDERABLE S Final Result Performing Organization Address City/[facility] Co de Phone Number [facility] [address] [place] [address], from Last 3 Months or Most Recently Relevant to Health Maintenance Insurance [facility] Advance Directives * Full Code (Latest Code Status on File) Date Activated Date Inactivated Comments 09/09/2023 2:12 AM * Full Code Date Activated Date Inactivated Comments 09/08/2023 10:01 AM 09/09/2023 2:12 AM * Full Code Date Activated Date Inactivated Comments 08/23/2023 4:40 PM 09/08/2023 8:58 AM Care Teams Tourist Adviser Relationship Specialty Start Date End Date Cooper Lawler MD [address] [place] [address] PCP - General
--- OUTSIDE RECORDS SUMMARY | 2024-12-05 09:36 | XMS_ITS | Clinical Summary ---
Author Organization [facility] Address [address] [place] [address] Care Team Providers Care Manager Wound Care Name Role Phone Unavailable Primary Care Provider [...] Advance Directives For more information, please contact: [phone] Latest Code Status on File Code Status [...]
--- OUTSIDE RECORDS SUMMARY | 2024-12-05 09:36 | XMS_ITS | Encounter Summary ---
Author Organization [facility] Address [address] [place] [address] Care Team Providers Care Wrapper Sheeter Name Role Phone Cooper Lawler MD Primary Care Provider [phone] Encounter Details Date Type Department Care Team (Late st Contact Info) Description 03/17/2023 Scanned Document [facility] Department Of Screw Machine Hand [place] [address] [place] [address] Shalom Orlando MD [address] [place] [address] Social History Tobacco Use Types Packs/Day Years [...] on filedocumented in this encounter Care Teams Wrapper Sheeter Relationship Specialty Start Date End Date Cooper Lawler MD [address] [place], [place] [id number] PCP - General documented as of this encounter
--- OUTSIDE RECORDS SUMMARY | 2024-12-05 09:36 | XMS_ITS | Encounter Summary ---
Author Organization [facility] Address [address] [place] [address] Care Team Providers Care Repairer Engine Production Name Role Phone Cooper Lawler MD Primary Care Provider [phone] Encounter Details Date Type Department Care Team (Late st Contact Info) Description 10/14/2023 Scanned Document [facility] [address] [place] [address] Provider, External, [address] [place] [address] Social History Tobacco Use Types Packs/Day Years Used Date Smoking Tobacco: Never Smokeless Tobacco: Never Alcohol Use Standard Drinks/Week Comments Yes 0 (1 standard drink = 0.6 oz pur e alcohol) [facility] Utilities Answer Date Recorded In the past [...] place to sleep or slept in a usp (including now)? No 09/08/2023 Comments No Sex [...] on filedocumented in this encounter Care Teams Repairer Engine Production Relationship Specialty Start Date End Date Cooper Lawler MD [address] [place] [address] PCP - General documented as of this encounter
--- OUTSIDE RECORDS SUMMARY | 2024-12-05 09:36 | XMS_ITS | Encounter Summary ---
Author Organization [facility] Address [address] [place] [address] Care Team Providers Care Front Office Administrator Name Role Phone Cooper Lawler MD Primary Care Provider [phone] Encounter Details Date Type Department Care Team (Late st Contact Info) Description 08/10/2023 Scanned Document [facility] Department Of Hotel Operations Manager [place] [address] [place] [phone] Shalom Orlando MD [address] [place] [address] Social History Tobacco Use Types Packs/Day Years [...] on filedocumented in this encounter Care Teams Front Office Administrator Relationship Specialty Start Date End Date Cooper Lawler MD [address] [facility] [address] [place], [place] [id number] PCP - General documented as of this encounter
--- OUTSIDE RECORDS SUMMARY | 2024-12-05 09:36 | XMS_ITS | Clinical Summary ---
Author Organization [facility] Address [address] [place] [address] Care Team Providers Care Pulp Grinder Name Role Phone Unavailable Primary Care Provider Unavailabl e Surgical History Surgery Date Site/Laterality Comments APPENDECTOMY PROCEDURE:APPENDECTOMY KNEE SURGERY PROCEDURE:KNEE SURGERY MANDIBLE SURGERY PROCEDURE:MANDIBLE SURGERY WISDOM TOOTH EXTRACTION PROCEDURE:WISDOM TOOTH EXTRACTION CHOLECYSTECTOMY 10/14/2023 N/A PROCEDURE:CHOLECYSTECTOMY;COMMENT:P rocedure: LAPAROSCOPY CHOLECYSTECTOMY POSSIBLE OPEN; Surgeon: Camila Richey MD; Location: [facility]; Service: General; Laterality: N/A; Social History [...]
[2024-12-05 11:29] LABS: Hematocrit 42.6 % (37.0-47.0); Hemoglobin 14.2 g/dl (12.0-16.0); Mean Corpuscular HGB Conc 33.3 g/dl (31.0-35.0); Mean Corpuscular Hemoglobin 26.1 pg (27.0-33.0); Mean Corpuscular Volume 78.3 fL (80.0-98.0); Mean Platelet Volume 11.1 fL (9.4-12.3); Platelet Count 239 X10*3/uL (160-400); Red Blood Count 5.44 X10*6/uL (4.20-5.50); Red Cell Distribution Width 14.9 % (11.0-16.0); White Blood Count 5.9 X10*3/uL (4.8-10.8)
[2024-12-05 11:30] LABS: Estimated Average Glucose 100 mg/dL; Hemoglobin A1C 118.7685 umol/L; Hemoglobin A1c % 5.1 % (<6.0); Total Hemoglobin (HGBA1C) 3693.7622 umol/L
[2024-12-05 11:51] LABS: Microalbum/Creatinine Ratio Ur 8.8 ug/mg cr (<30)
[2024-12-05 11:57] LABS: Alanine Aminotransferase 49 U/L (0-31); Albumin Level 4.5 g/dL (3.5-5.0); Alkaline Phosphatase 64 U/L (39-117); Amylase 61 U/L (28-100); Anion Gap 10 (12-20); Aspartate Amino Transferase 29 U/L (5-31); Bilirubin Total 0.8 mg/dL (0.0-1.0); Blood Urea Nitrogen 15 mg/dL (9-16); Calcium 9.6 mg/dL (8.4-10.2); Carbon Dioxide 26 mmol/L (22-29); Chloride 108 mmol/L (96-108); Cholesterol 135 mg/dL (<200); Estimated Glomerular Filt Rate > 60; Glucose Random 100 mg/dL (60-115); HDL Cholesterol 43 mg/dL (>40); LDL Cholesterol Calculated 73 mg/dL (<100); Lipase 25 U/L (8-78); Potassium 3.1 mmol/L (3.3-5.1); Sodium 141 mmol/L (135-145); Total Protein 7.4 g/dL (6.5-8.0); Triglycerides 96 mg/dL (<150)
[2024-12-05 12:16] LABS: Folate 6.8 ng/mL (> or = 4.0); Vitamin B12 478 pg/mL (200-900)
[2024-12-05 12:17] LABS: Ferritin 10 ng/mL (10-122); TSH reflex Free T4 1.09 uIU/mL (0.32-4.0); Vitamin D 25-OH Total 21.7 ng/mL (>30)
== END 2024-12-05 09:06 | disposition home or self-care (01) ==
LOC: HO.WFDLDS 09:05
PROVIDERS: Visit Provider Nurse Practitioner Family
DX: R19.7 Diarrhea, unspecified (principal); K21.9 Gastro-esophageal reflux disease without esophagitis
CPT/HCPCS: 36415; 80053; 80061; 82043; 82150; 82306; 82570; 82607; 82728; 82746; 83036; 83690; 84443; 85027; 87338

== ENCOUNTER 2025-01-17 13:28 | Outpatient (AMB) | payer OTHER, SELFPAY ==
[2025-01-17 13:36] VITALS: BMI 32.1
--- NOTE | 2025-01-17 13:36 | MHC.AMNUTRGE ---
VS Expanded 01/17/25 13:36 01/30/25 08:46 Height 5 ft 5 in 5 ft 5 in Weight 193 lb 1.999 oz 192 lb BMI 32.1 31.9 Intake Visit Reasons: Obesity Allergies tree nut Allergy (Unknown, Verified 12/05/24 08:24) Hives Nutrition Presentation Details: Pt presents for MNT for Obesity Pt reports having 2 children (first born in 2020, 2nd born in 2023 ) Pt reports having lost about 30 lbs after the second child and wants to work on healthy eating pattern while continuing to work on wt loss food frequency fruits: 2 /day vegetables: daily dairy 1/day fish: 1-2 d fluid 42 oz /water takes iron supple, with mvi , eliza D weekly fried foods: 0-1/wk eating out 0-1/wk physical activity: ADL eoth/smoking:denies BS Monitoring Most Recent Diabetes Results: Microalb/Creat Ratio, (<30) 8.8 ug/mg cr 12/05/24 Cholesterol, (<200) 135 mg/dL 12/05/24 HDL Cholesterol, (>40) 43 mg/dL 12/05/24 Triglycerides, (<150) 96 mg/dL 12/05/24 Creatinine, (0.5-1.4) 0.72 mg/dL 12/05/24 BUN, (9-16) 15 mg/dL 12/05/24 Sodium, (135-145) 141 mmol/L 12/05/24 Potassium, (3.3-5.1) 3.1 mmol/L L 12/05/24 Chloride, (96-108) 108 mmol/L 12/05/24 Carbon Dioxide, (22-29) 26 mmol/L 12/05/24 Calcium, (8.4-10.2) 9.6 mg/dL 12/05/24 AST, (5-31) 29 U/L 12/05/24 ALT, (0-31) 49 U/L H 12/05/24 Total Protein, (6.5-8.0) 7.4 g/dL 12/05/24 Albumin, (3.5-5.0) 4.5 g/dL 12/05/24 WYA-Jegucaa-Ob.Jeor Equation Height: 5 ft 5 in Weight: 192 lb Resting Metabolic Rate: 1573.62 Calculated Activity Level: Mild Activity Calories Needed to Maintain Weight: 2163.73 Diagnosis Nutrition problem #1: overweight/obesity As related to (etiology) #1: diagnosis As evidenced by (sign/symptom) #1: high BMI (32 (02/22)) [facility] Medical History (Updated 12/05/24 @ 20:30 by Elizabeth Kumar [facility]) Anxiety GERD (gastroesophageal reflux disease) Surgical History (Updated 12/05/24 @ 08:11 by Candy Ko MA) Hx of cholecystectomy H/O wisdom tooth extraction Hx of appendectomy Family History (Updated 12/05/24 @ 08:14 by Candy Ko MA) Mother HTN (hypertension) High cholesterol Thyroid disorder Paternal Grandmother HTN (hypertension) Father Diabetes Maternal Grandfather Brain cancer Paternal Grandfather Lung cancer Social History (Updated 12/05/24 @ 08:09 by Candy Ko MA) Household Members: Spouse and Children Both parents involved: No Caregiver staying overnight: No Housing: House Are you a primary care manager cna to a significant other at home: Yes Do you presently have visiting nurse or other home services: No 75 years or older and lives alone: No Alcohol intake: current Alcohol intake frequency: a few times a month Patient Tobacco Use Status: Never used Tobacco e-Cigarette/Vaping Use: Never Used Second Hand Smoke Exposure: No service: No Current occupational status: employed 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 Cognitive needs: No Hearing needs: No Vision needs: No Assessment & Plan Assessment & Plan (1) Obesity (BMI 30-39.9): Code(s): E66.9 - Obesity, unspecified Category: Medical Plan: Wt: 96 Kg ( 02/22 ) Est kcal needs as per MSJ: 2200 (40% carb, 30% protein/fat) Est fluid needs as per 25-30 ml/d: 2900 Est prot per day as per 1 g/kg bw: 80-100 Recommend fiber intake : 8-10 g per day and gradually increase to 25-28 g per day for women and 35-38 g for men or as tolerated Recommend sodium intake per day : less than 2300 mg Educated patient on: ( R = reviewed V = verbalizes understanding N/R = needs review N/A = not applicable Food sources of carbohydrate, adequate serving sizes and its role in various health conditions: R Differences between complex carbohydrates a simple carbohydrates, role of fiber in diet: R Lean protein sources of foods: R Differences between types of fats and role in diet (mono on saturated fat fatty acids, saturated fatty acids, trans fats): R basic Food sources of sodium in salt and healthy modifications for heart health in kidney health: R V R/V Vitamins and minerals: R V N/R Healthy plate method concept: R Physical activity: Benefits a precaution: R V N/R Patient Instructions: Work on having 3meals/day , goal <60 g carb per meals, 0-20 g carb as snack see meal ideas Coding Level of Care Code Nutr Indiv Intake (10808) Diagnoses Obesity (BMI 30-39.9) E66.9 Time Spent (min) 30
--- OUTSIDE RECORDS SUMMARY | 2025-01-17 14:38 | XMS_ITS | Encounter Summary ---
Author Organization [facility] Address [address] [place] [address] Care Team Providers Care Kennel Manager Name Role Phone Cooper Lawler MD Primary Care Provider [phone] Encounter Details Date Type Department Care Team (Late st Contact Info) Description 03/17/2023 Scanned Document [facility] Department Of Cobol Engineer [place] [address] [place] [address] Shalom Orlando MD [address] [place] [address] Social History Tobacco Use Types Packs/Day Years [...] on filedocumented in this encounter Care Teams Kennel Manager Relationship Specialty Start Date End Date Cooper Lawler MD [address] [place], [place] [phone] PCP - General documented as of this encounter
[2025-01-30 08:46] VITALS: BMI 31.9
== END 2025-01-17 14:12 | disposition home or self-care (01) ==
PROVIDERS: PCP Nurse Practitioner Family; Visit Provider Dietitian, Registered
DX: E66.9 Obesity, unspecified (principal)

== ENCOUNTER → 2025-01-17 13:28 | Outpatient (BNVA) | payer OTHER, SELFPAY | PROVIDERS: PCP Nurse Practitioner Family; Visit Provider Dietitian, Registered | DX: E66.9 Obesity, unspecified (principal); Z68.32 Body mass index [BMI] 32.0-32.9, adult | CPT/HCPCS: 97802 ==

== ENCOUNTER 2025-01-22 13:17 | Outpatient (REF) | payer OTHER, SELFPAY ==
--- NOTE | ~2025-01-22 | US_ITS ---
CLINICAL HISTORY: R79.89 - Other specified abnormal findings of blood chemistry --- Additional Notes or Special Instructions: s p rupinder w liver stenting and pancreatitis US abdomen complete Comparison: None provided Findings: The pancreatic head and body appear within normal limits. The pancreatic tail is obscured by overlying bowel gas. The aorta and inferior vena cava are normal caliber. The liver is normal in size and echotexture. There is no intrahepatic bile duct dilatation. The common duct is 5.7 mm in diameter. The gallbladder is not visualized. The main portal vein is antegrade. The right kidney is 11.0 cm in length. The left kidney is 12.5 cm in length. The spleen is normal. IMPRESSION: 1. Prior cholecystectomy. Otherwise, negative abdominal ultrasound exam. This document has been electronically signed by: Karie Buckner on 01/23/2025 09:12:45
--- OUTSIDE RECORDS SUMMARY | 2025-01-22 15:13 | XMS_ITS | Encounter Summary ---
Author Organization [facility] Address [address] [place] [address] Care Team Providers Care Stem Cleaning Machine Feeder Name Role Phone Cooper Lawler MD Primary Care Provider [phone] Encounter Details Date Type Department Care Team (Late st Contact Info) Description 03/17/2023 Scanned Document [facility] Department Of Editorial Clerk [place] [address] [place] [address] Shalom Orlando MD [address] [place] [address] Social History Tobacco Use Types Packs/Day Years [...] on filedocumented in this encounter Care Teams Stem Cleaning Machine Feeder Relationship Specialty Start Date End Date Cooper Lawler MD [address] [facility] [address] [place], [place] [id number] PCP - General documented as of this encounter
== END 2025-01-22 13:18 | disposition home or self-care (01) ==
LOC: HO.US 13:17
PROVIDERS: PCP Nurse Practitioner Family; Visit Provider Nurse Practitioner Family
DX: R79.89 Other specified abnormal findings of blood chemistry (principal); R19.7 Diarrhea, unspecified
CPT/HCPCS: 76700

== ENCOUNTER → 2025-01-22 13:20 | Outpatient (BNV) | payer OTHER, SELFPAY | PROVIDERS: PCP Nurse Practitioner Family; Visit Provider Radiology Vascular & Interventional Radiology | DX: R79.89 Other specified abnormal findings of blood chemistry (principal) | CPT/HCPCS: 76700 ==

== ENCOUNTER 2025-02-06 13:38 | Outpatient (AMB) | payer OTHER, SELFPAY ==
--- NOTE | 2025-02-06 13:44 | A.OFFPC_ITS ---
Vital Signs 02/06/25 13:51 Height 5 ft 5 in Weight 194 lb 6 oz BMI 32.3 BP 102/74 Blood Pressure Location Rt brachial Respiration 12 Pulse 99 Pulse Source Pulse Oximeter Temp 98.2 F Temp Source Oral Pulse Oximetry (%) 98 Oxygen Delivery Method Room Air Intake Visit Reasons: FU Abd US Intake Note: Follow up abdominal ultrasound results. 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 Counseling - using EAP and this has been helpful History of Present Illness - The patient is a 34-year-old female pr esenting for f/u - Post-cholecystectomy, elevated liver e nzymes observed. - Chronic diarrhea noted now resolved; n oted it to be linked to sugar-free candies, resolved after cessation. - Abdominal ultrasound normal- see resul ts below. Reviewed w/ her today. - Consistently elevated pulse; monitored via smartwatch. Sleep study scheduled. - Vitamin D deficient; taking vitamin D supplements. - Slightly low potassium noted along w/ Mild anemia. Taking MVI with IRon and Vit D since labs 11/2024. - Does not have appt w/ podiatry or GI a t this time. - Did have Nutrition consult; felt overw helmed. - Mood stable; in counseling through wor k Review of Systems - Gastrointestinal: Reports resolved laya rrhea; denies current gastrointestinal pain. - Cardiovascular: Reports elevated heart rate. - General: Denies current abdominal pain , no current H. pylori present. Physical Exam General: Well developed, well nourished, in no acute distress. Appears stated age. Head: Normocephalic, atraumatic. Eyes: Pupils are equal, round and reactive to light and accommodation. Conjunctivae are clear. Scleras nonicteric Lungs: Clear to auscultation bilaterally, dim throughout Heart: Regular rate & rhythm, No murmurs, click, rubs or gallops are noted. Abdomen: Bowel sounds present in all quadrants. The abdomen is soft, nontender, with no masses or organomegaly noted. No hernias are noted. . Pulses: Peripheral pulses are equal and palpable bilaterally. Extremities: No clubbing, cyanosis nor edema is noted. Toenail fungus noted on the left big toe. Psych: Mood and affect appropriate. Results 11/2024 h pylori negative - Labs: Vitamin D deficiency, slightly l ow potassium, elevated ALT. - Tests: Abdominal ultrasound normal. - Diagnostics: Pending sleep study Discussion Notes I discussed with the patient the importance of managing her dietary intake to address her slightly low potassium and vitamin D deficiencies. We reviewed the potential causes of her elevated ALT, with an emphasis on her liver health. She was advised to increase her consumption of potassium-rich foods. We reviewed her financial intern's plan, noting its inadequacies for her specific needs, especially considering her intolerance to certain foods like red meat and tree nuts. We also discussed her elevated heart rate, which she monitors via smartwatch, and emphasized the significance of completing the pending sleep study for further assessment. Plans were made for follow-up testing in three months to reassess her liver enzymes, vitamin D, and potassium levels. Counseling options were explored, with the patient already engaged in sessions through her EAP program. The necessity of obtaining and reviewing referrals from her primary care was noted for further specialist consultations. Assessment and Plan 1. Elevated liver function tests - Monitor liver enzymes. - Lifestyle modification advised. - Has interest and trying tocotrienol a supplement her work makes - Advised to check w/ insurance for heal th benefits and/or other referrals PRN Let me know via portal - Repeat labs in three months. 2. Status post cholecystectomy - Stable post-surgical recovery, 3. Chronic diarrhea (resolved) - No further intervention required as di arrhea resolved s/p cessation of sugar substitute FU with GI 4. Rapid pulse - Monitor heart rate. - Sleep study pending. 5. Nutrition management needs - Explore insurance-covered dietetic pro grams. 6. Elevated ALT - Dietary evaluation continued. - Await repeat labs. 7. Low vitamin D - Vitamin D supplementation ongoing. 8. Slightly low potassium/Anemia - Dietary intake encouraged. Patient Instructions - Monitor heart rate and report any sign ificant changes. - Increase intake of potassium-rich food s like bananas and potatoes. - Continue vitamin D supplementation as prescribed. - Review any insurance programs for diet karine and nutrition consultations. RTO in 3 months for CPE w/repeat labs sooner prn Consent Patient was informed and verbally consented to the use of an ambient scribe for clinic note documentation during this visit. Total time spent caring for the patient today was 41 minutes. This includes time spent before the visit reviewing the chart, time spent during the visit, and time spent after the visit on documentation, reviewing laboratory results, diagnostic imaging, medications, performing a medically necessary evaluation, counseling on diagnoses, care coordination, ordering appropriate tests, ordering appropriate medications, review of tests performed by other providers, reporting test results with the patient, communication with other healthcare providers. [facility] Medical History (Updated 12/05/24 @ 20:30 by Elizabeth Kumar [facility]) Anxiety GERD (gastroesophageal reflux disease) Surgical History Hx of cholecystectomy H/O wisdom tooth extraction Hx of appendectomy Family History Mother HTN (hypertension) High cholesterol Thyroid disorder Paternal Grandmother HTN (hypertension) Father Diabetes Maternal Grandfather Brain cancer Paternal Grandfather Lung cancer Social History (Updated 02/06/25 @ 13:52 by Helen Peters CMA) Household Members: Spouse and Children Both parents involved: No Caregiver staying overnight: No Housing: House Are you a primary long term care administrator to a significant other at home: Yes Do you presently have visiting nurse or other home services: No 75 years or older and lives alone: No Alcohol intake: current Alcohol intake frequency: a few times a month Patient Tobacco Use Status: Never used Tobacco e-Cigarette/Vaping Use: Never Used Second Hand Smoke Exposure: No service: No Current occupational status: employed 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 Current occupational exposures/hazards: No Cognitive needs: No Hearing needs: No Vision needs: No Questionnaire Thrive Questionnaire Date Thrive assessed: 12/05/24 I am a: Patient What is your living situation today?: I have a steady place to live Within the past 12 months, did the food you bought not last and you didn't have the money to get more?: Never true Within the past 12 months, did you worry whether your food would run out before you got money to buy more?: Never true Do you have trouble paying for medicines?: No Do you have trouble getting transportation to medical appointments?: No Do you have trouble paying your heating and electricity bill?: No Do you have trouble taking care of your child, family member or friend?: No Do you have trouble with day-to-day activities such as bathing, preparing meals, shopping, managing finances, etc.?: No Are you currently unemployed and looking for a job?: No Are you interested in more education?: No Please select the resources that you would like help with: None Currently or been in a relationship where the following occur: No concerns reported THRIVE Score: 0 AUDIT C Alcohol Use Questionnaire (AUDIT-C) 1. How often do you have a drink containing alcohol?: 2-4 times a month 2. How many drinks containing alcohol do you have on a typical day when you are drinking?: 1 or 2 3. How often do you have six or more drinks on one occasion?: Never Total Score: 2 BLANCA-7 AMB Questionnaire BLANCA-7 Date BLANCA - 7 assessed: 12/05/24 Source: Developed by Drs. Jose Tavarez, Nickie Joseph, Quincy Ro and colleagues, with an educational nelsy from [employer]. Physical exam (Primary Care) Vital Signs: Last Vital Signs Temp 98.2 F 02/06/25 13:51 Pulse 99 02/06/25 13:51 Resp 12 02/06/25 13:51 BP 102/74 02/06/25 13:51 Pulse Ox 98 02/06/25 13:51 Oxygen Delivery Method Room Air 02/06/25 13:51 BMI result Body Mass Index 32.3 Tobacco/Smoking Status: Tobacco use Status Tobacco use date assessed 02/06/25 02/06/25 13:50 Patient Tobacco Use Status Never used Tobacco 02/06/25 13:52 e-Cigarette/Vaping Use Never Used 02/06/25 13:52 Thrive Assessment: Date of Thrive Assessment Date Thrive assessed 12/05/24 02/06/25 13:46 Currently or been in a relationship where the following occur: No concerns reported Results Reviewed Results Reviewed: LINICAL HISTORY: R79.89 - Other specified abnormal findings of blood chemistry --- Additional Notes or Special Instructions: s p rupinder w liver stenting and pancreatitis US abdomen complete Comparison: None provided Findings: The pancreatic head and body appear within normal limits. The pancreatic tail is obscured by overlying bowel gas. The aorta and inferior vena cava are normal caliber. The liver is normal in size and echotexture. There is no intrahepatic bile duct dilatation. The common duct is 5.7 mm in diameter. The gallbladder is not visualized. The main portal vein is antegrade. The right kidney is 11.0 cm in length. The left kidney is 12.5 cm in length. The spleen is normal. IMPRESSION: 1. Prior cholecystectomy. Otherwise, negative abdominal ultrasound exam. This document has been electronically signed by: Karie Buckner on 01/23/2025 09:12:45 Coding Level of Care Code Est Pt Level 5 (10188) Complex EM visit Add On G2211 Diagnoses Tachycardia R00.0 Vitamin D deficiency E55.9 Elevated LFTs R79.89 Diarrhea, unspecified type R19.7 Diarrhea type: unspecified type Mild anemia D64.9 BLANCA (generalized anxiety disorder) F41.1 Gastroesophageal reflux disease without esophagitis K21.9 Esophagitis presence: without esophagitis Onychomycosis of left great toe B35.1 Assessment & Plan Assessment & Plan (1) Tachycardia: Code(s): R00.0 - Tachycardia, unspecified Category: Medical (2) Vitamin D deficiency: Code(s): E55.9 - Vitamin D deficiency, unspecified Category: Medical (3) Elevated LFTs: Code(s): R79.89 - Other specified abnormal findings of blood chemistry Category: Medical (4) Diarrhea: Code(s): R19.7 - Diarrhea, unspecified Category: Medical Qualifiers: Diarrhea type: unspecified type Qualified Code(s): R19.7 - Diarrhea, unspecified (5) Mild anemia: Code(s): D64.9 - Anemia, unspecified Category: Medical (6) BLANCA (generalized anxiety disorder): Code(s): F41.1 - Generalized anxiety disorder Category: Medical (7) GERD (gastroesophageal reflux disease): Code(s): K21.9 - Gastro-esophageal reflux disease without esophagitis Category: Medical Qualifiers: Esophagitis presence: without esophagitis Qualified Code(s): K21.9 - Gastro-esophageal reflux disease without esophagitis (8) Onychomycosis of left great toe: Code(s): B35.1 - Tinea unguium Category: Medical Plan . Orders: Orders Complete Blood Count no Diff 3 Months D64.9 - Anemia, unspecified, E55.9 - Vitamin D deficiency, unspecified, R79.89 - Other specified abnormal findings of blood chemistry Comprehensive Met. Panel 3 Months D64.9 - Anemia, unspecified, E55.9 - Vitamin D deficiency, unspecified, R79.89 - Other specified abnormal findings of blood chemistry Vitamin D 25-OH Total 3 Months D64.9 - Anemia, unspecified, E55.9 - Vitamin D deficiency, unspecified, R79.89 - Other specified abnormal findings of blood chemistry Ferritin 3 Months D64.9 - Anemia, unspecified, E55.9 - Vitamin D deficiency, unspecified, R79.89 - Other specified abnormal findings of blood chemistry
[2025-02-06 13:51] VITALS: BP 102/74; PULSE 99; RESP 12; TEMP 36.8; O2SAT 98; BMI 32.3
--- OUTSIDE RECORDS SUMMARY | 2025-02-06 14:27 | XMS_ITS | Clinical Summary ---
Author Organization [facility] Address [address] [place] [address] Care Team Providers Care Production Graphic Designer Name Role Phone Unavailable Primary Care Provider [...] 88 10/14/2023 3:33 PM EDT Temperature 36.7 C (98 F) 10/14/2023 3:33 PM EDT Respiratory Rate 16 [...] (P ap Smear) 2011 Influenza Vaccine (#1) 2025 05/10/2023 DTap / Tdap / Td (2 - Td or Tdap) 08/04/2033 024 RSV Adult > 60+ Yrs or Discontinued 3 Pneumococcal Vaccine Aged Out No long er eligible based on patient's age to complete this topic RSV Ped < 20 months Aged Out No longe r eligible based on patient's age to complete this topic Advance Directives For more information, please contact: [phone] Latest Code Status on File Code Status [...]
--- OUTSIDE RECORDS SUMMARY | 2025-02-06 14:27 | XMS_ITS | Encounter Summary ---
Author Organization [facility] Address [address] [place] [address] Care Team Providers Care Insert Molding Operator Name Role Phone Cooper Lawler MD Primary Care Provider [phone] Encounter Details Date Type Department Care Team (Late st Contact Info) Description 03/17/2023 Scanned Document [facility] Department Of Facsimile Machine Operator [place] [address] [place] [id number] Shalom Orlando MD [address] [place] [address] Social History Tobacco Use Types Packs/Day Years [...] on filedocumented in this encounter Care Teams Insert Molding Operator Relationship Specialty Start Date End Date Cooper Lawler MD [address] [place], [place] [id number] PCP - General documented as of this encounter
--- OUTSIDE RECORDS SUMMARY | 2025-02-06 14:28 | XMS_ITS | Clinical Summary ---
Author Organization [facility] Address [address] [place] [address] Care Team Providers Care Material Mixer Name Role Phone Unavailable Primary Care Provider Unavailabl e Surgical History Surgery Date Site/Laterality Comments APPENDECTOMY PROCEDURE:APPENDECTOMY KNEE SURGERY PROCEDURE:KNEE SURGERY MANDIBLE SURGERY PROCEDURE:MANDIBLE SURGERY WISDOM TOOTH EXTRACTION PROCEDURE:WISDOM TOOTH EXTRACTION CHOLECYSTECTOMY 10/14/2023 N/A PROCEDURE:CHOLECYSTECTOMY;COMMENT:P rocedure: LAPAROSCOPY CHOLECYSTECTOMY POSSIBLE OPEN; Surgeon: Camila Richey MD; Location: [facility]; Service: General; Laterality: N/A; Social History [...] 10/14/2023, 10/12/2023, Additional history exists Influenza Vaccine (#1) 2025 HIB Vaccines Aged Out No longer [...] 5 Years) and At-Risk Patients (6 to 49 Years) Aged Out No longer eligible based on patient's age to complete this topic RSV Immunization Patients Under 20 months Aged Out No longer eligible based on patient's age to complete this topic Varicella Vaccines Aged Out No longer eligible based on patient's age to complete this topic
--- OUTSIDE RECORDS SUMMARY | 2025-02-06 14:28 | XMS_ITS ---
Author Name [facility] Organization Unknown Results Test Name/Text Value Interpretation Date Range Source LIPASE SERPL CCNC 52.0 U/L Normal 10/14/2023 11 - 82 [facility] ALP SERPL-CCNC 220.0 U/L Above high normal 10/14/2023 34 - 1 04 [facility] ALT SERPL CCNC 460.0 U/L Above high normal 10/14/2023 7 - 52 [facility] AST SERPL CCNC 432.0 U/L Above high normal 10/14/2023 5 - [facility] LDH SERPL L TO P CCNC 426.0 U/L Above high normal 10/14/2023 125 - 220 [facility] HCG PREG SERPL QL NEGATIVE Normal 10/14/2023 [facility] NEUTROPHILS NFR BLD AUTO 85.8 % Above high normal 10/14/2023 44 - 74 [facility] MONOCYTES NFR BLD AUTO 2.5 % Normal 10/14/2023 2 - 12 [facility] BASOPHILS NFR BLD AUTO 0.1 % Normal 10/14/2023 0 - 2 [facility] EOSINOPHIL NFR BLD AUTO 0.0 % Normal 10/14/2023 0 - 6 [facility] NUCLEATED RBC 0.0 % Normal 10/14/2023 0 - [facility] LYMPHOC[facility]TES NFR BLD AUTO 11.2 % Below low normal 10/14/2023 20 - 48 [facility] NEUTROPHILS NO. BLD AUTO 7.8 K/uL Normal 10/14/2023 1.8 - 7.8 [facility] LYMPHOCYTES NO. BLD AUTO 1.0 K/uL Normal 10/14/2023 1 - 3.2 [facility] IMMATURE GRANULOCYTE, PERCENT 0.4 % Normal 10/14/2023 0 - 1 [facility] BASOPHILS IN BLOOD BY AUTOMATED COUNT 0.0 K/uL Normal 10/14/2023 0 - 0.2 [facility] IMMATURE GRANULOCYTE, ABSOLUTE 0.04 k/uL Normal 10/14/2023 - 0.1 [facility] MONOCYTES NO. BLD AUTO 0.2 K/uL Normal 10/14/2023 0 - 0.8 [facility] EOSINOPHIL NO. BLD AUTO 0.0 K/uL Normal 10/14/2023 0 - 0.5 [facility] MCV RBC AUTO 72.4 fL Below low normal 10/14/2023 78 - 100 [facility] PMV BLD AUTO 10.4 fL Normal 10/14/2023 7.4 - 11.4 [facility] RDW RBC AUTO RTO 22.5 % Above high normal 10/14/2023 12.1 - 16.2 [facility] PLATELET NO. BLD AUTO 261.0 K/uL Normal 10/14/2023 150 - 450 [facility] MCH RBC QN AUTO 23.4 pg Below low normal 10/14/2023 25 - 3 3 [facility] HGB BLD MCNC 12.9 g/dL Normal 10/14/2023 12.5 - 16 [facility] MCHC RBC AUTO MCNC 32.3 g/dL Normal 10/14/2023 32 - 36 [facility] HCT VFR BLD AUTO 39.9 % Normal 10/14/2023 37 - 47 [facility] WBC NO. BLD AUTO 9.1 K/uL Normal 10/14/2023 4 - 10.5 [facility] RBC NO. BLD AUTO 5.51 M/uL Above high normal 10/14/2023 4.2 - 5.4 [facility] ANION GAP SERPL SCNC 13.0 mmol/L Normal 10/14/2023 5 - 14 [facility] POTASSIUM SERPL SCNC 3.6 mmol/L Normal 10/14/2023 3.5 - 5.1 [facility] BUN SERPL MCNC 10.0 mg/dL Normal 10/14/2023 7 - 17 [facility] HCO3 SER SCNC 20.0 mmol/L Below low normal 10/14/2023 24 - 3 2 [facility] Glomerular filtration rate/1.73 sq M. predicted 100.0 Normal 10/14/2023 60 - [facility] CREAT SERPL MCNC 0.8 mg/dL Normal 10/14/2023 0.5 - 1 [facility] CHLORIDE SERPL SCNC 105.0 mmol/L Normal 10/14/2023 98 - 1 07 [facility] CALCIUM SERPL MCNC 9.6 mg/dL Normal 10/14/2023 8.4 - 10.2 [facility] GLUCOSE SERPL MCNC 139.0 mg/dL Normal 10/14/2023 70 - 199 [facility] SODIUM SERPL SCNC 137.0 mmol/L Normal 10/14/2023 135 - 14 5 [facility] AMYLASE SERPL CCNC 43.0 U/L Normal 10/14/2023 29 - 103 [facility] BILIRUB DIRECT SERPL MCNC 0.9 mg/dL Above high normal 10/14/2023 0 - 0.2 [facility] BILIRUB SERPL MCNC 1.6 mg/dL Above high normal 10/14/2023 0. 3 - 1 [facility] HCT VFR BLD AUTO 36.8 % Below low normal 10/14/2023 37 - 47 [facility] HGB BLD MCNC 11.9 g/dL Below low normal 10/14/2023 12.5 - 16 [facility] BUN SERPL MCNC 12.0 mg/dL Normal 10/12/2023 7 - 17 [facility] POTASSIUM SERPL SCNC 3.5 mmol/L Normal 10/12/2023 3.5 - 5.1 [facility] Glomerular filtration rate/1.73 sq M. predicted 100.0 Normal 10/12/2023 60 - [facility] HCO3 SER SCNC 23.0 mmol/L Below low normal 10/12/2023 24 - 3 2 [facility] CHLORIDE SERPL SCNC 108.0 mmol/L Above high normal 98 - 107 [facility] SODIUM SERPL SCNC 139.0 mmol/L Normal 10/12/2023 135 - 14 5 [facility] GLUCOSE SERPL MCNC 79.0 mg/dL Normal 10/12/2023 70 - 199 [facility] CREAT SERPL MCNC 0.8 mg/dL Normal 10/12/2023 0.5 - 1 [facility] CALCIUM SERPL MCNC 9.0 mg/dL Normal 10/12/2023 8.4 - 10.2 [facility] ANION GAP SERPL SCNC 8.0 mmol/L Normal 10/12/2023 5 - 14 [facility] ALBUMIN SERPL BCG MCNC 4.0 g/dL Normal 10/12/2023 3.5 - 5 [facility] AST SERPL CCNC 134.0 U/L Above high normal 10/12/2023 5 - 40 [facility] ALP SERPL-CCNC 177.0 U/L Above high normal 10/12/2023 34 - 1 04 [facility] ALBUMIN/GLOB SERPL MRTO 1.8 Normal 10/12/2023 [facility] BILIRUB SERPL MCNC 0.8 mg/dL Normal 10/12/2023 0.3 - 1 [facility] BILIRUB DIRECT SERPL MCNC 0.2 mg/dL Normal 10/12/2023 0 - 0.2 [facility] ALT SERPL CCNC 257.0 U/L Above high normal 10/12/2023 7 - 52 [facility] PROT SERPL MCNC 6.2 g/dL Below low normal 10/12/2023 6.4 - 8.5 [facility] ALT SERPL CCNC 286.0 U/L Above high normal 10/11/2023 7 - 52 [facility] PROT SERPL MCNC 6.9 g/dL Normal 10/11/2023 6.4 - 8.5 [facility] BILIRUB SERPL MCNC 0.9 mg/dL Normal 10/11/2023 0.3 - 1 [facility] ALBUMIN SERPL BCG MCNC 4.4 g/dL Normal 10/11/2023 3.5 - 5 [facility] ALP SERPL-CCNC 190.0 U/L Above high normal 10/11/2023 34 - 1 04 [facility] AST SERPL CCNC 162.0 U/L Above high normal 10/11/2023 5 - 40 [facility] ALBUMIN/GLOB SERPL MRTO 1.8 Normal 10/11/2023 [facility] BILIRUB DIRECT SERPL MCNC 0.3 mg/dL Above high normal 10/11/2023 0 - 0.2 [facility] URATE SERPL MCNC 6.4 mg/dL Normal 10/11/2023 2.5 - 7 [facility] MAGNESIUM SERPL MCNC 1.8 mg/dL Normal 10/11/2023 1.7 - 2.8 [facility] ANION GAP SERPL SCNC 13.0 mmol/L Normal 10/11/2023 5 - 14 [facility] CHLORIDE SERPL SCNC 104.0 mmol/L Normal 10/11/2023 98 - 1 07 [facility] CALCIUM SERPL MCNC 9.6 mg/dL Normal 10/11/2023 8.4 - 10.2 [facility] GLUCOSE SERPL MCNC 113.0 mg/dL Normal 10/11/2023 70 - 199 [facility] BUN SERPL MCNC 12.0 mg/dL Normal 10/11/2023 7 - 17 [facility] Glomerular filtration rate/1.73 sq M. predicted 117.0 Normal 10/11/2023 60 - [facility] CREAT SERPL MCNC 0.7 mg/dL Normal 10/11/2023 0.5 - 1 [facility] SODIUM SERPL SCNC 136.0 mmol/L Normal 10/11/2023 135 - 14 5 [facility] POTASSIUM SERPL SCNC 3.7 mmol/L Normal 10/11/2023 3.5 - 5.1 [facility] HCO3 SER SCNC 19.0 mmol/L Below low normal 10/11/2023 24 - 3 2 [facility] BILIRUB DIRECT SERPL MCNC 1.1 mg/dL Above high normal 10/11/2023 0 - 0.2 [facility] BILIRUB SERPL MCNC 2.1 mg/dL Above high normal 10/11/2023 0. 3 - 1 [facility] LIPASE SERPL CCNC 54.0 U/L Normal 10/11/2023 11 - 82 [facility] AMYLASE SERPL CCNC 39.0 U/L Normal 10/11/2023 29 - 103 [facility] AST SERPL CCNC 226.0 U/L Above high normal 10/11/2023 5 - 40 [facility] ALT SERPL CCNC 265.0 U/L Above high normal 10/11/2023 7 - 52 [facility] LDH SERPL L TO P CCNC 306.0 U/L Above high normal 10/11/2023 125 - 220 [facility] ALP SERPL-CCNC 209.0 U/L Above high normal 10/11/2023 34 - 1 04 [facility] MCV RBC AUTO 72.9 fL Below low normal 10/11/2023 78 - 100 [facility] IMMATURE GRANULOCYTE, ABSOLUTE 0.03 k/uL Normal 10/11/2023 - 0.1 [facility] PLATELET NO. BLD AUTO 247.0 K/uL Normal 10/11/2023 150 - 450 [facility] MONOCYTES NO. BLD AUTO 0.3 K/uL Normal 10/11/2023 0 - 0.8 [facility] LYMPHOCYTES NFR BLD AUTO 14.7 % Below low normal 10/11/2023 20 - 48 [facility] PMV BLD AUTO 10.5 fL Normal 10/11/2023 7.4 - 11.4 [facility] MCHC RBC AUTO MCNC 31.2 g/dL Below low normal 10/11/2023 32 - 36 [facility] RBC NO. BLD AUTO 5.46 M/uL Above high normal 10/11/2023 4.2 - 5.4 [facility] RDW RBC AUTO RTO 21.8 % Above high normal 10/11/2023 12.1 - 16.2 [facility] MCH RBC QN AUTO 22.7 pg Below low normal 10/11/2023 25 - 3 3 [facility] WBC NO. BLD AUTO 7.5 K/uL Normal 10/11/2023 4 - 10.5 [facility] HCT VFR BLD AUTO 39.8 % Normal 10/11/2023 37 - 47 [facility] IMMATURE GRANULOCYTE, PERCENT 0.4 % Normal 10/11/2023 0 - 1 [facility] HGB BLD MCNC 12.4 g/dL Below low normal 10/11/2023 12.5 - 16 [facility] EOSINOPHIL NO. BLD AUTO 0.0 K/uL Normal 10/11/2023 0 - 0.5 [facility] NEUTROPHILS NFR BLD AUTO 79.5 % Above high normal 10/11/2023 44 - 74 [facility] MONOCYTES NFR BLD AUTO 4.5 % Normal 10/11/2023 2 - 12 [facility] NEUTROPHILS NO. BLD AUTO 6.0 K/uL Normal 10/11/2023 1.8 - 7.8 [facility] NUCLEATED RBC 0.0 % Normal 10/11/2023 0 - 1 [facility] BASOPHILS IN BLOOD BY AUTOMATED COUNT 0.0 K/uL Normal 10/11/2023 0 - 0.2 [facility] LYMPHOCYTES NO. BLD AUTO 1.1 K/uL Normal 10/11/2023 1 - 3.2 [facility] BASOPHILS NFR BLD AUTO 0.4 % Normal 10/11/2023 0 - 2 [facility] EOSINOPHIL NFR BLD AUTO 0.5 % Normal 10/11/2023 0 - 6 [facility] HCG PREG UR QL NEGATIVE Normal 10/11/2023 - [facility] Sp Gr Ur Strip.auto 1.015 Normal 10/11/2023 1.005 - 1 .03 [facility] Glucose Ur Ql Strip.auto NEGATIVE Normal 10/11/2023 - [facility] Ketones Ur Ql Strip.auto >80 Abnormal 10/11/2023 - [facility] Hgb Ur Ql Strip.auto NEGATIVE Normal 10/11/2023 - [facility] Nitrite Ur Ql Strip.auto NEGATIVE Normal 10/11/2023 - [facility] Prot Ur Ql Strip.auto TRACE Abnormal 10/11/2023 - [facility] Clarity Ur Refract.auto CLEAR Normal 10/11/2023 [facility] Leukocyte esterase Ur Ql Strip.auto NEGATIVE Normal 10/11/2023 - [facility] pH Ur Strip.auto 7.0 Normal 10/11/2023 4.5 - 8 [facility] SPECIMEN SOURCE XXX URINE CLEAN CATCH Normal 10/11/2023 [facility] History of Medication Use Medication Directions Dispensed [...] 1,000 mg 1,000 mg, Intravenous, Once, On Tu10/11/23 at 0300, For 1 doseIf ordered IV [...] Tab Take 1 tablet by mouth. active Allergies Allergen Reaction Severity Comment Documented Date Source Statu s NUTS ANAPHYLAXIS 02/23/2021 CCT active TREE NUTS ANAPHYLAXIS 02/23/2021 [facility] active Problems Problem Status Onset Date Problem Type Date of Resolution Source Post-term , 40-42 weeks of gestation active 2023-09-[address] Normal spontaneous vaginal delivery active 2023-09-10 [facility] Papanicolaou smear active EncounterDiagnosisAct [facility] Decreased movement active 2023-08-23 ProblemAct [facility] Severe pre-eclampsia, delivered, current hospitalization active 2021-02-24 ProblemAct [facility] Elevated blood pressure affecting in third trimester, antepartum active 2021-02-23 ProblemAct [facility] Normal labor active 2021-02-[address] [facility] MH Post-operative pain active EncounterDiagnosisAc t [facility] Hyperbilirubinemia active EncounterDiagnosisAct [facility] Elevated liver enzymes active EncounterDiagnosi sAct [facility] Choledocholithiasis active 2023-10-11 ProblemAct [facility] Immunizations Vaccine Date Source Lot Number Status Tdap 08/04/2023 CCT [id number] completed RSV, Bivalent, Protein Subun it RSVPREF (ABRYSVO), Diluent Reconstituted, 0.5 mL PF 07/12/2023 CCT [id number] completed Influenza, Quadrivalent (FLU ARIX, AFLURIA, FLULAVAL, FLUZONE) Preservative Free IM 05/10/2023 CCT [id number] completed Encounters Encounter Type Encounter Reason Primary Diagnosis Location Date Ambulatory Encounter for gynecological examination (general) (routine) without abnormal findings Encounter for gynecological examination (general) (routine) without abnormal findings [facility] 12/10/2024 [facility] 11[facility]/2023 Emergency Other acute postprocedural pain Other acute postprocedural pain [facility] 10/14/2023 Ambulatory Calculus of bile oni t without cholangitis or cholecystitis without obstruction Calculus of bile duct without cholangitis or cholecystitis without obstruction [facility] 10/14/2023 Inpatient Acute cholecystitis Acute cholecystitis [facility] 10/10/2023 Inpatient Encounter for full-term uncomplicated delivery Encounter for full-term uncomplicated delivery [facility] 09/08/2023 Ambulatory Encounter for supervision of normal , unspecified, third trimester Encounter for supervision of normal , unspecified, third trimester [facility] 08/30/2023 Ambulatory Encounter for supervision of normal , unspecified, third trimester Encounter for supervision of normal , unspecified, third trimester [facility] 08/26/2023 Ambulatory Decreased movements, unspecified trimester, not applicable or unspecified Decreased movements, unspecified trimester, not applicable or unspecified [facility] 08/23/2023 Ambulatory Encounter for supervision of normal , unspecified, third trimester Encounter for supervision of normal , unspecified, third trimester [facility] 08/23/2023 Ambulatory Encounter for supervision of normal , unspecified, third trimester Encounter for supervision of normal , unspecified, third trimester [facility] 08/18/2023 Ambulatory Encounter for supervision of normal , unspecified, third trimester Encounter for supervision of normal , unspecified, third trimester [facility] 08/11/2023 Ambulatory Encounter for supervision of normal , unspecified, third trimester Encounter for supervision of normal , unspecified, third trimester [facility] 08/04/2023 Ambulatory Encounter for supervision of normal , unspecified, third trimester Encounter for supervision of normal , unspecified, third trimester [facility] 07/26/2023 Ambulatory Maternal care for excessive growth, third trimester, not applicable or unspecified Maternal care for excessive growth, third trimester, not applicable or unspecified [facility] 07/19/2023 Ambulatory Encounter for immunization Encounter for immunization [facility] 07/12/2023 Ambulatory Encounter for supervision of normal , unspecified, third trimester Encounter for supervision of normal , unspecified, third trimester [facility] 06/28/2023 Ambulatory Encounter for supervision of normal , unspecified, second trimester Encounter for supervision of normal , unspecified, second trimester [facility] 06/07/2023 Ambulatory Encounter for immunization Encounter for immunization [facility] 05/10/2023 Ambulatory Encounter for supervision of other normal , second trimester Encounter for supervision of other normal , second trimester [facility] 04/12/2023 Ambulatory Encounter for supervision of other normal , second trimester Encounter for supervision of other normal , second trimester [facility] 03/15/2023 Ambulatory Encounter for screening for nuchal translucency [facility] 02/18/2023 Ambulatory Encounter for supervision of other normal , first trimester [facility] 02/15/2023 Ambulatory Encounter for supervision of normal , unspecified, first trimester [facility] 01/18/2023 Ambulatory Encounter for gynecological examination (general) (routine) without abnormal findings [facility] 10/22/2022 Care Team Organization Name Specialty Phone Email Start Date End Da te [facility] 12/10/2024 01/08/[address] [facility] [address] [facility] 10/11/2023 [facility] 3 01/09/2025 [facility] 3 02/18/2023 [facility] 10/22/2022 01/08/2025 [facility] 10/22/2022 10/22/2022
== END 2025-02-06 14:15 | disposition home or self-care (01) ==
LOC: HO.HMCFM 13:39
PROVIDERS: PCP Nurse Practitioner Family; Visit Provider Nurse Practitioner Family
DX: R00.0 Tachycardia, unspecified (principal); E55.9 Vitamin D deficiency, unspecified; R79.89 Other specified abnormal findings of blood chemistry; R19.7 Diarrhea, unspecified; D64.9 Anemia, unspecified; F41.1 Generalized anxiety disorder; K21.9 Gastro-esophageal reflux disease without esophagitis; B35.1 Tinea unguium

== ENCOUNTER → 2025-02-06 13:38 | Outpatient (BNVA) | payer OTHER, SELFPAY | PROVIDERS: PCP Nurse Practitioner Family; Visit Provider Nurse Practitioner Family | DX: R00.0 Tachycardia, unspecified (principal); E55.9 Vitamin D deficiency, unspecified; R79.89 Other specified abnormal findings of blood chemistry; R19.7 Diarrhea, unspecified; D64.9 Anemia, unspecified; F41.1 Generalized anxiety disorder; K21.9 Gastro-esophageal reflux disease without esophagitis; B35.1 Tinea unguium | CPT/HCPCS: 99212 ==

== ENCOUNTER → 2025-02-21 13:29 | Outpatient (REF) | payer OTHER, SELFPAY ==
--- OUTSIDE RECORDS SUMMARY | 2025-02-21 13:35 | XMS_ITS | Encounter Summary ---
Author Organization [facility] Address [address] [place] [address] Care Team Providers Care Processing Rep Name Role Phone Cooper Lawler MD Primary Care Provider [phone] Encounter Details Date Type Department Care Team (Late st Contact Info) Description 03/17/2023 Scanned Document [facility] Of Sports Coordinator [place] [address] [place] [id number] Shalom Orlando MD [address] [place] [address] Social History Tobacco Use Types Packs/Day Years [...] on filedocumented in this encounter Care Teams Processing Rep Relationship Specialty Start Date End Date Cooper Lawler MD [address] [facility] [place], [place] [id number] PCP - General documented as of this encounter
--- OUTSIDE RECORDS SUMMARY | 2025-02-21 13:35 | XMS_ITS | Clinical Summary ---
Author Organization [facility] Address [address] [place] [address] Care Team Providers Care Tax Services Professional Name Role Phone Unavailable Primary Care Provider [...] Advance Directives For more information, please contact: [phone] Latest Code Status on File Code Status [...]
--- OUTSIDE RECORDS SUMMARY | 2025-02-21 13:35 | XMS_ITS | Clinical Summary ---
Author Organization [facility] [place] [address] Care Team Providers Care Production Machine Tender Name Role Phone Unavailable Primary Care Provider Unavailabl e Surgical History Surgery Date Site/Laterality Comments APPENDECTOMY PROCEDURE:APPENDECTOMY KNEE SURGERY PROCEDURE:KNEE SURGERY MANDIBLE SURGERY PROCEDURE:MANDIBLE SURGERY WISDOM TOOTH EXTRACTION PROCEDURE:WISDOM TOOTH EXTRACTION CHOLECYSTECTOMY 10/14/2023 N/A PROCEDURE:CHOLECYSTECTOMY;COMMENT:P rocedure: LAPAROSCOPY CHOLECYSTECTOMY POSSIBLE OPEN; Surgeon: Camila Richey MD; Location: [facility]; Service: General; Laterality: N/A; Social History [...] Smear 2011 Cholesterol Screening (Lipid Panel) 07/04/2022 HIV Screening 07/04/2022 Hepatitis C Screening 07/04/2022 Social Influencers of Health Screening 07/04/2022 COVID-19 Vaccine ( - season) 2024 Depression Screening 08/01/2024 Hypertension/CHF/CAD Annual BMP Blood Test 10/13/2024 10/14/2023, [...]
== END ==
LOC: HO.SL 13:29
PROVIDERS: PCP Nurse Practitioner Family; Visit Provider Nurse Practitioner Family
DX: R06.83 Snoring (principal); G47.10 Hypersomnia, unspecified; R00.0 Tachycardia, unspecified
CPT/HCPCS: 95806

== ENCOUNTER → 2025-02-21 13:35 | Outpatient (BNV) | payer OTHER, SELFPAY | PROVIDERS: PCP Nurse Practitioner Family; Visit Provider Internal Medicine | DX: R06.83 Snoring (principal) | CPT/HCPCS: 95806 ==

== ENCOUNTER 2025-03-01 14:24 | Outpatient (AMB) | payer OTHER, SELFPAY ==
--- NOTE | 2025-03-01 14:22 | A.OFFPC_ITS ---
Intake Visit Reasons: Sleep Study Review Hatsizehone [id number] Intake Note: Telehealth to review sleep study. Bending Machine Set Up Operator Required: No Allergies tree nut Allergy (Unknown, Verified 03/01/25 14:29) Hives Medication List - Last Reconciled 03/01/25 by ALCIRA Cuellar- epinephrine 0.3 mg IM Q10M PRN multivitamin with iron 1 tab PO DAILY Tobacco use date assessed: 03/01/25 Dental Screening Dental Screen Date: 03/01/25 Did you have a dental visit in the last 12 months?: Yes Did you have a dental problem in the last 6 months where you did not have access to dental care?: No Was dental information given to patient?: Patient has dentist HPI HPI Comments 2 History of Present Illness0 Details 34 y/o female with hx of pancreatitis, o besity, Vit D def, s/p lap rupinder w/complication 09/2023 [facility] Social: 2 children aged 3 and 1, , 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 - Heart rate reaches 140 bpm during phys ical activities like Pilates. - Denies chest pain or changes in oxygen saturation. - Negative sleep study ruled out obstruc tive sleep apnea. Results as below; snoring otherwise normal variation in pulse and no hypoxia - She does have anemia and is taking MVI with Iron - Reviewed holter monitor; she instead h as a smart ring that can monitor her VS Review of Systems - Cardiovascular: Reports elevated heart rate at rest and with activity. - Respiratory: Denies obstructive sleep apnea; excessive snoring noted. - General: Denies chest pain or alarming symptoms directly associated with palpitations. Results - Tests and Diagnostics: - Negative slee p study for obstructive sleep apnea. - Oxygen levels during sleep study prashant l (91% to 98% saturation). Assessment and Plan 1. Elevated Heart Rate - Monitor heart rate via smart device; a lert me as needed - Consider Holter for detailed EKG PRN - Repeat labs in May. Hopefully ta chycardia will improve as anemia improves. 2. Anemia - Monitor status with labs. - Evaluate correlation with heart rate. 3. Excessive Snoring - No treatment needed without other symp toms. As she is Asx, mutual decision making to watch, wait and monitor. RTO as planned, repeat labs 05/2025, sooner PRN Patient was given time to ask questions. All questions were answered to their satisfaction. Telehealth Attestation This visit was conducted via telehealth, and the documentation accurately reflects the information discussed and observed during the visit. The patient has been explained that this is an interactive (audio/video) telehealth encounter and what that consists of. The patient understands and wishes to proceed. [employer] platform was used. Total time spent caring for the patient today was 15 minutes. This includes time spent before the visit reviewing the chart, time spent during the visit, and time spent after the visit on documentation, reviewing laboratory results, diagnostic imaging, medications, performing a medically necessary evaluation, counseling on diagnoses, care coordination, ordering appropriate tests, ordering appropriate medications, review of tests performed by other providers, reporting test results with the patient, communication with other healthcare providers. [facility] Medical History (Updated 03/01/25 @ 14:33 by Elizabeth Kumar, [facility]) Anxiety GERD (gastroesophageal reflux disease) Surgical History Hx of cholecystectomy H/O wisdom tooth extraction Hx of appendectomy Family History Mother HTN (hypertension) High cholesterol Thyroid disorder Paternal Grandmother HTN (hypertension) Father Diabetes Maternal Grandfather Brain cancer Paternal Grandfather Lung cancer Social History (Updated 02/06/25 @ 13:52 by Helen Peters CMA) Household Members: Spouse and Children Both parents involved: No Caregiver staying overnight: No Housing: House Are you a primary pharmacy care coordinator to a significant other at home: Yes Do you presently have visiting nurse or other home services: No 75 years or older and lives alone: No Alcohol intake: current Alcohol intake frequency: a few times a month Patient Tobacco Use Status: Never used Tobacco e-Cigarette/Vaping Use: Never Used Second Hand Smoke Exposure: No service: No Current occupational status: employed 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 Current occupational exposures/hazards: No Cognitive needs: No Hearing needs: No Vision needs: No Questionnaire Thrive Questionnaire Date Thrive assessed: 12/05/24 I am a: Patient What is your living situation today?: I have a steady place to live Within the past 12 months, did the food you bought not last and you didn't have the money to get more?: Never true Within the past 12 months, did you worry whether your food would run out before you got money to buy more?: Never true Do you have trouble paying for medicines?: No Do you have trouble getting transportation to medical appointments?: No Do you have trouble paying your heating and electricity bill?: No Do you have trouble taking care of your child, family member or friend?: No Do you have trouble with day-to-day activities such as bathing, preparing meals, shopping, managing finances, etc.?: No Are you currently unemployed and looking for a job?: No Are you interested in more education?: No Please select the resources that you would like help with: None Currently or been in a relationship where the following occur: No concerns reported THRIVE Score: 0 BLANCA-7 AMB Questionnaire BLANCA-7 Date BLANCA - 7 assessed: 12/05/24 Source: Developed by Drs. Jose Tavarez, Nickie Joseph, Quincy Ro and colleagues, with an educational nelsy from [employer]. Physical exam (Primary Care) Tobacco/Smoking Status: Tobacco use Status Tobacco use date assessed 03/01/25 03/01/25 14:23 Patient Tobacco Use Status Never used Tobacco 03/01/25 14:23 e-Cigarette/Vaping Use Never Used 03/01/25 14:23 Thrive Assessment: Date of Thrive Assessment Date Thrive assessed 12/05/24 03/01/25 14:23 Currently or been in a relationship where the following occur: No concerns reported Telehealth Telehealth Telehealth Platform: [facility] Location of provider rendering services: practice address Location of patient: address on file Patient Identification confirmed using: Name, : Yes Telehealth method: voice only Patient verbally consented to treatment: Yes Patient verbally consented to billing insurance company: Yes Patient informed of any privacy concerns related to visit: Yes Minutes spent on Phone/Video with Pt.: 5 Results Reviewed Results Reviewed: Coding Level of Care Code Tele Est Pt Level 2 (11435) Complex EM visit Add On G2211 Diagnoses Tachycardia R00.0 Mild anemia D64.9 H/O sleep study Z92.89 Encounter to discuss test results Z71.2 Assessment & Plan Assessment & Plan (1) Tachycardia: Code(s): R00.0 - Tachycardia, unspecified Category: Medical (2) Mild anemia: Code(s): D64.9 - Anemia, unspecified Category: Medical (3) H/O sleep study: Onset Date: ~01/2025 Comment: + snoring, negative for FREDA Code(s): Z92.89 - Personal history of other medical treatment Category: Medical (4) Encounter to discuss test results: Code(s): Z71.2 - Person consulting for explanation of examination or test findings Plan .
--- OUTSIDE RECORDS SUMMARY | 2025-03-01 14:26 | XMS_ITS | Clinical Summary ---
Author Organization [facility] Address [address] [place] [address] Care Team Providers Care Orthopedic Technician Name Role Phone Unavailable Primary Care Provider [...] Advance Directives For more information, please contact: [phone] Latest Code Status on File Code Status [...]
--- OUTSIDE RECORDS SUMMARY | 2025-03-01 14:26 | XMS_ITS | Clinical Summary ---
Author Organization [facility] Address [address] [place] [address] Care Team Providers Care Stripe Marker Name Role Phone Unavailable Primary Care Provider Unavailabl e Surgical History Surgery Date Site/Laterality Comments APPENDECTOMY PROCEDURE:APPENDECTOMY KNEE SURGERY PROCEDURE:KNEE SURGERY MANDIBLE SURGERY PROCEDURE:MANDIBLE SURGERY WISDOM TOOTH EXTRACTION PROCEDURE:WISDOM TOOTH EXTRACTION CHOLECYSTECTOMY 10/14/2023 N/A PROCEDURE:CHOLECYSTECTOMY;COMMENT:P rocedure: LAPAROSCOPY CHOLECYSTECTOMY POSSIBLE OPEN; Surgeon: Camila Richey MD; Location: [facility]; Service: General; Laterality: N/A; Social History [...]
== END 2025-03-01 14:38 | disposition home or self-care (01) ==
LOC: HO.HMCFM 14:24
PROVIDERS: PCP Nurse Practitioner Family; Visit Provider Nurse Practitioner Family
DX: R00.0 Tachycardia, unspecified (principal); D64.9 Anemia, unspecified; Z92.89 Personal history of other medical treatment; Z71.2 Person consulting for explanation of examination or test findings